=== PATIENT | male | born 1970 | race Caucasian/White ===

== ENCOUNTER 2017-06-02 14:28 | Inpatient (IN) | payer SELFPAY ==
[2017-06-02] MEDS ORDERED: LABETALOL HCL 5 MG/ML 20 ML MDV ONE (14:39)
[2017-06-02] MEDS: LABETALOL HCL 5 MG/ML 20 ML MDV IVP PRN ×3 (14:41→20:23)
[2017-06-02 14:42] LABS: PLATELET COUNT 226 10^3/uL (150-400)
--- NOTE | 2017-06-02 14:43 | CPEKG ---
Heart Rate: 71 RR Interval: 845 P-R Interval: 176 QRSD Interval: 110 QT Interval: 444 QTC Interval: 483 P Bennett: 45 QRS Bennett: 44 T Wave Bennett: 35 EKG Severity - ABNORMAL ECG - EKG Impression: SINUS RHYTHM EKG Impression: NONSPECIFIC INTRAVENTRICULAR CONDUCTION DELAY EKG Impression: MINIMAL ST DEPRESSION, LATERAL LEADS Electronically Signed By: Faith Carpio 02-Jun-2017 21:50:13
[2017-06-02] MEDS ORDERED: niCARdipine/NACL 200 ML IV ONE (14:50)
--- NOTE | 2017-06-02 14:51 | EDPHY ---
H & P Stated Complaint: hypertensive Time Seen by Provider: 06/02/17 14:35 HPI/ROS: CHIEF COMPLAINT: Headache HISTORY OF PRESENT ILLNESS: This is a 46-year-old Singaporean speaking male who arrives by ambulance emergently. All information was obtained with the assistance of a [place]an foreign language interpreter. 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 He attributed this to high blood pressure. He has a history of hypertension for which he takes losartan. He is compliant with this medication. No head trauma. At the time of his arrival he complains of severe global and nuchal headache. The paramedics were under the impression that he was experiencing chest pain but he tells me that this is not the case. He has no chest pain. He does not feel short of breath. He has not recently been ill. REVIEW OF SYSTEMS: A ten point review of systems was performed and is negative with the exception of the items mentioned in the HPI. 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 He is with children. His is in [place]. He does not use tobacco or alcohol products products and denies the use of illicit drugs. General Appearance: Alert. Vital signs reviewed. Initial blood pressure 251/ 140. Head: Normocephalic atraumatic. Eyes: Pupils equal and round, no conjunctival injection, no discharge. Anicteric. ENT, Mouth: Mucous membranes are moist, no oropharyngeal erythema or edema. Neck: No lymphadenopathy, supple. Trachea midline. Nontender to palpation over the cervical spine. Respiratory: Lungs are clear to auscultation; no wheezes, rales, or rhonchi. Cardiovascular: Regular rate and rhythm; no murmur, rub, or gallop. Gastrointestinal: Abdomen is soft and nontender, no masses or organomegaly, bowel sounds normal. Skin: Warm and dry, no rashes on exposed skin, normal color. Back: Nontender to palpation over the thoracolumbar spine. Extremities: No lower extremity edema, no calf tenderness or swelling. Neurological: Alert and oriented. Moving all four extremities easily and equally. Cranial nerves II through XII are examined and are intact (visual acuity not tested). Strength is 5 over 5 bilaterally with testing of all major motor groups. Sensation is intact to light touch over all 4 extremities. Finger-to- nose is performed accurately. Psychiatric: Normal affect. - Personal History Current Tetanus Diphtheria and Acellular Pertussis (TDAP): Unsure - Medical/Surgical History Hx Asthma: No Hx Chronic Respiratory Disease: No Hx Diabetes: No Hx Cardiac Disease: No Hx Renal Disease: No Hx Cirrhosis: No Hx Alcoholism: No Hx HIV/AIDS: No Hx Splenectomy or Spleen Trauma: No Other PMH: HTN - Social History Smoking Status: Never smoked Constitutional: Initial Vital Signs Temperature (C) 36.4 C 06/02/17 14:36 Heart Rate 71 06/02/17 14:36 Respiratory Rate 20 06/02/17 14:36 Blood Pressure 251/140 H 06/02/17 14:36 O2 Sat (%) 99 06/02/17 14:36 O2 Delivery Mode Room Air Allergies/Adverse Reactions: No Known Drug Allergies Allergy (Verified 06/02/17 14:45) Home Medications: Medication Instructions Recorded Losartan Potassium [Cozaar 50 mg 50 mg PO DAILY 06/02/17 (*)] Medical Decision Making - Diagnostics EKG Interpretation: 12 lead EKG is interpreted in Trace master View by emergency department physician. Imaging Results: Imaging Impressions Head CT 06/02/17 14:33 Impression: 1. Acute subarachnoid hemorrhages involving the basilar cisterns and bilateral parasylvian fissures, which may be secondary to ruptured basilar tip aneurysm, posttraumatic hemorrhage, or hypertensive hemorrhage. 2. Old lacunar infarct right lentiform nucleus. 3. No midline shift or herniation. 4. Consider CTA brain to evaluate for aneurysm. Findings and recommendations discussed with Emergency Department physician, Sammie Aquino M.D., at 1440 hours, on June 02, 2017. Final report concurs with initial preliminary interpretation. A test result has been communicated to a licensed care provider and documented in the [facility] Critical Result system on 06/02/2017 14:48, Message ID [id number]. Chest X-Ray 06/02/17 14:47 Impression: 1. No acute pulmonary disease. 2. Consider chest two views when the patient's medical condition permits. 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 Findings and recommendations discussed with Emergency Department physician, SAMMIE AQUINO at 16:02 hour, 06/02/2017. Final report concurs with initial preliminary interpretation. ED Course/Re-evaluation: 46-year-old male who arrives with blood pressure of 251/140 in the setting of the worst headache of his life. Emergent CT scan of the brain without contrast was performed and revealed bilateral subarachnoid hemorrhage. He was noted to have a creatinine of 2.6, making CT angiogram risky. Because of this MR angiogram was performed and revealed a basilar tip aneurysm, presumably the source of his subarachnoid hemorrhage. The patient initially received labetalol 10 mg IV followed by the initiation of a Cardene IV drip. The goal was to attained systolic blood pressures around 130. This was difficult to achieve. The Cardene drip was titrated upwards with gradual improvement in his blood pressures. At the time that he left the department his blood pressure was 165/93. He received IV morphine for treatment of his headache. Patient was serially examined while in the department and remained neurologically intact and fully alert throughout his stay. I reviewed the patient's EKG, chest x-ray, laboratory studies, CT scan and MRA. I have discussed the radiographic studies with the radiologist on duty. I spoke with Dr. Estrella, neurosurgery, over the telephone and Dr. Estrella subsequently saw the patient in the emergency department. He will be admitting admitting the patient to the ICU. I have notified the hospitalist on duty and asked for medical consultation. Differential Diagnosis: Headache including but not limited to subarachnoid hemorrhage, migraine headache , tension headache and infectious causes such as meningitis, pharyngitis and sinusitis. Critical Care Time: I spent a total of 6 minutes of critical care time in obtaining history, performing a physical exam, bedside monitoring of interventions, collecting and interpreting tests and discussion with consultants but not including time spent performing procedures. - Data Points Laboratory Results: Laboratory Results 06/02/17 14:39 06/02/17 14:39 06/02/17 06/02/17 06/02/17 15:22 14:39 14:39 WBC 8.43 10^3/uL 10^3/uL (3.80-9.50) RBC 5.34 10^6/uL 10^6/uL (4.40-6.38) Hgb 15.5 g/dL g/dL (13.7-17.5) POC Hgb Hct 43.7 % % (40.0-51.0) POC Hct MCV 81.8 fL fL (81.5-99.8) MCH 29.0 pg pg (27.9-34.1) MCHC 35.5 g/dL g/dL (32.4-36.7) RDW 12.9 % % (11.5-15.2) Plt Count 226 10^3/uL 10^3/uL (150-400) MPV 10.2 fL fL (8.7-11.7) Neut % (Auto) 69.8 % % (39.3-74.2) Lymph % (Auto) 19.5 % % (15.0-45.0) Liberty % (Auto) 8.5 % % (4.5-13.0) Eos % (Auto) 1.2 % % (0.6-7.6) Baso % (Auto) 0.5 % % (0.3-1.7) Nucleat RBC Rel Count 0.0 % % (0.0-0.2) Absolute Neuts (auto) 5.89 10^3/uL 10^3/uL (1.70-6.50) Absolute Lymphs (auto) 1.64 10^3/uL 10^3/uL (1.00-3.00) Absolute Monos (auto) 0.72 10^3/uL 10^3/uL (0.30-0.80) Absolute Eos (auto) 0.10 10^3/uL 10^3/uL (0.03-0.40) Absolute Basos (auto) 0.04 10^3/uL 10^3/uL (0.02-0.10) Absolute Nucleated RBC 0.00 10^3/uL 10^3/uL (0-0.01) Immature Gran % 0.5 % % (0.0-1.1) Immature Gran # 0.04 10^3/uL 10^3/uL (0.00-0.10) PT 12.7 SEC SEC (12.0-15.0) INR 0.93 (0.83-1.16) APTT 25.2 SEC SEC (23.0-38.0) POC Sodium Sodium 143 mEq/L mEq/L (135-145) POC Potassium Potassium 4.0 mEq/L mEq/L (3.5-5.2) POC Chloride Chloride 104 mEq/L mEq/L (97-110) Carbon Dioxide 22 mEq/l mEq/l (22-31) Anion Gap 17 mEq/L H mEq/L (8-16) POC BUN BUN 28 mg/dL H mg/dL (7-23) Creatinine 2.6 mg/dL H mg/dL (0.7-1.3) POC Creatinine Estimated GFR 27 Glucose 125 mg/dL H mg/dL (70-100) POC Glucose Calcium 10.0 mg/dL mg/dL (8.5-10.4) 06/02/17 14:36 WBC RBC Hgb POC Hgb 15.3 gm/dL gm/dL (13.7-17.5) Hct POC Hct 45 % % (40-51) MCV MCH MCHC RDW Plt Count MPV Neut % (Auto) Lymph % (Auto) Liberty % (Auto) Eos % (Auto) Baso % (Auto) Nucleat RBC Rel Count Absolute Neuts (auto) Absolute Lymphs (auto) Absolute Monos (auto) Absolute Eos (auto) Absolute Basos (auto) Absolute Nucleated RBC Immature Gran % Immature Gran # PT INR APTT POC Sodium 141 mEq/L mEq/L (135-145) Sodium POC Potassium 3.7 mEq/L mEq/L (3.3-5.0) Potassium POC Chloride 102 mEq/L mEq/L (97-110) Chloride Carbon Dioxide Anion Gap POC BUN 27 mg/dL H mg/dL (7-23) BUN Creatinine POC Creatinine 2.8 mg/dL H mg/dL (0.7-1.3) Estimated GFR Glucose POC Glucose 137 mg/dL H mg/dL (70-100) Calcium Medications Given: Hydrocodone Bitart/Acetaminophen (Rienzi 5/325) 1 tab PO Q4HRS PRN PRN Reason: Pain, Moderate Able to Take PO Stop: 06/12/17 16:52 Last Admin: 06/02/17 19:22 Dose: 1 tab Nicardipine HCl 50 mg/ (Dextrose) 250 mls @ 0 mls/hr IV CONT BRIDGETT; Per Protocol PRN Reason: Protocol Stop: 11/29/17 20:59 Last Admin: 06/02/17 21:12 Dose: 250 mls Labetalol HCl (Trandate Injection) 10 mg IVP .EVERY 10-20 MIN PRN PRN Reason: Hypertension during/after t-PA Stop: 11/29/17 14:38 Last Admin: 06/02/17 20:23 Dose: 10 mg Morphine Sulfate (Morphine) 1 - 2 mg IVP Q4HRS PRN PRN Reason: Pain, Severe Unable to Take PO Stop: 06/12/17 16:53 Last Admin: 06/02/17 21:11 Dose: 2 mg Nimodipine (Nimotop) 60 mg PO Q4HRS BRIDGETT Stop: 11/29/17 17:59 Last Admin: 06/02/17 18:03 Dose: 60 mg Ondansetron HCl (Zofran) 4 mg IVP Q4HRS PRN PRN Reason: Nausea/Vomiting, Can't Take PO Stop: 11/29/17 16:51 Last Admin: 06/02/17 17:23 Dose: 4 mg Discontinued Medications Nicardipine/Sodium Chloride (Cardene 0.1 Mg/Ml (Premix)) 200 mls @ 0 mls/hr IV EDNOW ONE; Titrate PRN Reason: Protocol Stop: 06/02/17 14:51 Last Admin: 06/02/17 14:57 Dose: 200 mls Nicardipine/Sodium Chloride (Cardene 0.1 Mg/Ml (Premix)) 200 mls @ 0 mls/hr IV CONT BRIDGETT; Titrate PRN Reason: Protocol Stop: 11/29/17 16:59 Last Admin: 06/02/17 20:22 Dose: 200 mls Morphine Sulfate (Morphine) 4 mg IVP EDNOW ONE Stop: 06/02/17 15:08 Last Admin: 06/02/17 15:20 Dose: 4 mg Point of Care Test Results: 06/02/17 14:36 POC Sodium 141 POC Potassium 3.7 POC Chloride 102 POC BUN 27 H POC Creatinine 2.8 H POC Glucose 137 H Departure - Departure Disposition: [facility] Acute Clinical Impression: Subarachnoid hemorrhage, Hypertensive emergency Condition: Serious
[2017-06-02 15:41] LABS: INR 0.93 (0.83-1.16); PROTIME(PATIENT) 12.7 SEC (12.0-15.0)
[2017-06-02] MEDS ORDERED: NS 1,000 ML IV SCH (16:45)
[2017-06-02] MEDS: ONDANSETRON 4 MG/2 ML VIAL IVP PRN (17:23)
[2017-06-02] MEDS: niCARdipine/NACL 200 ML IV SCH ×3 (17:50→20:22)
--- NOTE | 2017-06-02 17:57 | GHP ---
[f rep st] HISTORY AND PHYSICAL DATE OF ADMISSION: 06/02/2017 CONSULTING SERVICE: Emergency Medicine, Dr. Carpio. CHIEF COMPLAINT: Severe acute onset headache. 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 [place] had acute onset explosive headache which he has never had in his life. He was brought to the emergency department in reasonably good , and a noncontrasted head CT revealed significant basilar subarachnoid hemorrhage, consistent with an aneury smal rupture. Due to an elevated creatinine, he received an MRA of the brain which verified a sizabl e basilar tip artery aneurysm. The patient is primarily [place] speaking but, other than complaints of a headache, he has no other neurological symptoms. Family and friends are present at the bedside, as well as is a collaborating supervising physician. I saw him in the emergency room and agreed to admit him, given the neur osurgical pathology at hand. His blood pressure was very high in the 220 systolic over 100s diastoli c, and stat orders for a nicardipine drip for blood pressure less than 130 was requested. PAST MEDICAL AND SURGICAL HISTORY: Per HPI. 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 CODE STATUS: Full. ALLERGIES: No known drug allergies. FAMILY HISTORY: Negative, to his knowledge, for brain hemorrhages or sudden . SOCIAL HISTORY: Denies smoking or significant alcohol or drug abuse. He is with children. REVIEW OF SYSTEMS: Ten points reviewed and negative other than stated in HPI. VITAL SIGNS: Afebrile at 36.4, heart rate 71, blood pressure 251/140, saturating 99%, with a respira tory rate of 20, on room air. NEUROLOGIC EXAM: The patient is awake, alert, oriented x3 and appears stated age. He is fluent in [employer] but primarily speaks Citizen [place]. There is an official court interpreter present, and I am also fluent in [place] and obtained my own history. He is in moderate discomfort due to his headache but is 5/5 in all ext remities with no pronator drift. Normal reflexes and normal sensory exam. He has no cerebral findin gs. Gait is deferred. REVIEW OF IMAGING: I have reviewed the patient's noncontrasted head CT and agree that he has a patte rn of subarachnoid hemorrhage consistent with aneurysmal rupture. The blood seems equally distribute d throughout the basilar cisterns bilaterally, indicating a rupture of a midline aneurysm. The MRA c onfirms the presence of an at least 6 mm basilar tip aneurysm. I do not note any other aneurysms on any other of the arteries of the [place]. IMPRESSION AND PLAN: A 46-year-old male, with obesity and high blood pressure, who presents with sev ere acute onset headache, hypertensive emergency, and rupture of a basilar tip aneurysm with subarach noid hemorrhage. He is in reasonably good neurologic condition, just complains of a headache, but a nonfocal neurologic exam. Thus, his Hopper-Oleary grade is a 4 for some rupture into the ventricular sys tem, and his Mata grade is a 1 for headache only. We are admitting the patient to the ICU for neur o checks and tight blood pressure control, less than 130 on a nicardipine drip. He will also be hydr ated. I will discuss case with my partner, Dr. Blake Mcfarland, who is a cerebrovascular specialist, to see if he would like to perform aneurysm and endovascular treatment of this patient's ruptured aneur ysm. I met with the patient in the emergency room, and he was in good condition prior to my departur e from the hospital. /[id number]/MODL
[2017-06-02] MEDS: niMODipine 30 MG CAP PO SCH ×2 (18:03→22:11)
--- NOTE | 2017-06-02 18:53 | PDMN ---
Medical Necessity Medical necessity: C/M review: Patient meets INPT crioteria under MCG M-79 Subarachnoid Hemorrhage, Nonsurgical Treatment: Acute onset severe headache, hypertensive emergency BP 251/140, 6 mm basilar tip aneurysm on brain MRA with subarachnoid hemorrhage involving basilar cisterns and bilateral parasylvan fissures on CT, Hopper-Oleary grade 4 for some rupture into the ventricular system, Rodriguez grade 1 for headache only requiring planned Cerebrovascular Specialist ( Neurosurgery) consult, possible future aneurysm and endovascular treatment of ruptured aneurysm during this admission, IV Labatelol x 1 thus far, ongoing Nicardipine infusion, IV Morphine, IV NS 125 ml/hr. infusion, IV Zofran, IV Labetolol as needed to control BP, frequent neuro checks, tight BP control to < 130 systolic, comorbid obesity BMI 27.4 kg/m2, hypertension. MD anticipates > 2 MN LOS for ongoing med nec for eval and TX of above.
[2017-06-02] MEDS: HYDROCODONE/APAP 5/325 TAB PO PRN (19:22)
--- NOTE | 2017-06-02 20:10 | PDHOSCONS ---
History and Physical - Chief Complaint headache - History of Present Illness 46 yo M with PMH of HTN presenting with severe, sudden onset headache and neck ache. He notes this was a different headache from his usual headache but denies any other changes in his health including any numbness or weakness anywhere, any changes in his vision or speech. He was found to be quite hypertensive in the ER, with BP of 240/130 and noted to have a SAH that was related to basilar aneurysm rupture. At the time of my evaluation the patient notes that his head no longer hurts, but he continues to have some neck pain. He otherwise feels well and is hungry. History Information - Allergies/Home Medication List Allergies/Adverse Reactions: No Known Drug Allergies Allergy (Verified 06/02/17 14:45) Home Medications: Losartan Potassium [Cozaar 50 mg (*)] 50 mg PO DAILY 06/02/17 [Last Taken Unknown] I have personally reviewed and updated: family history, medical history, social history, surgical history - Past Medical History hypertension - Surgical History Reports: no pertinent surgical hx - Family History Positive for: non-pertinent - Social History Smoking Status: Never smoked Alcohol Use: Occasionally Drug Use: None Additional social history: Review of Systems Review of Systems: ROS: 10pt was reviewed & negative except for what was stated in HPI & below Physical Exam Physical Exam: Temp Pulse Resp BP Pulse Ox 37.1 C 103 H 21 H 144/83 H 97 06/02/17 19:00 06/02/17 20:00 06/02/17 19:00 06/02/17 20:00 06/02/17 19:00 O2 (L/minute) 2 Constitutional: no apparent distress, appears nourished Eyes: PERRL, anicteric sclera Ears, Nose, Mouth, Throat: moist mucous membranes, hearing normal, ears appear normal Cardiovascular: regular rate and rhythym, no murmur, rub, or gallop, No edema Respiratory: no respiratory distress, no rales or rhonchi, clear to auscultation Gastrointestinal: normoactive bowel sounds, soft, non-tender abdomen, no palpable masses Genitourinary: no bladder fullness Skin: warm, normal color Musculoskeletal: full muscle strength Neurologic: AAOx3, sensation intact bilaterally, No weakness, No numbness Psychiatric: interacting appropriately, not anxious, not encephalopathic Lab Data & Imaging Review 06/02/17 14:39 06/02/17 14:39 WBC 8.43 10^3/uL (3.80-9.50) 06/02/17 14:39 RBC 5.34 10^6/uL (4.40-6.38) 06/02/17 14:39 Hgb 15.5 g/dL (13.7-17.5) 06/02/17 14:39 POC Hgb 15.3 gm/dL (13.7-17.5) 06/02/17 14:36 Hct 43.7 % (40.0-51.0) 06/02/17 14:39 POC Hct 45 % (40-51) 06/02/17 14:36 MCV 81.8 fL (81.5-99.8) 06/02/17 14:39 MCH 29.0 pg (27.9-34.1) 06/02/17 14:39 MCHC 35.5 g/dL (32.4-36.7) 06/02/17 14:39 RDW 12.9 % (11.5-15.2) 06/02/17 14:39 Plt Count 226 10^3/uL (150-400) 06/02/17 14:39 MPV 10.2 fL (8.7-11.7) 06/02/17 14:39 Neut % (Auto) 69.8 % (39.3-74.2) 06/02/17 14:39 Lymph % (Auto) 19.5 % (15.0-45.0) 06/02/17 14:39 Ramsey % (Auto) 8.5 % (4.5-13.0) 06/02/17 14:39 Eos % (Auto) 1.2 % (0.6-7.6) 06/02/17 14:39 Baso % (Auto) 0.5 % (0.3-1.7) 06/02/17 14:39 Nucleat RBC Rel Count 0.0 % (0.0-0.2) 06/02/17 14:39 Absolute Neuts (auto) 5.89 10^3/uL (1.70-6.50) 06/02/17 14:39 Absolute Lymphs (auto) 1.64 10^3/uL (1.00-3.00) 06/02/17 14:39 Absolute Monos (auto) 0.72 10^3/uL (0.30-0.80) 06/02/17 14:39 Absolute Eos (auto) 0.10 10^3/uL (0.03-0.40) 06/02/17 14:39 Absolute Basos (auto) 0.04 10^3/uL (0.02-0.10) 06/02/17 14:39 Absolute Nucleated RBC 0.00 10^3/uL (0-0.01) 06/02/17 14:39 Immature Gran % 0.5 % (0.0-1.1) 06/02/17 14:39 Immature Gran # 0.04 10^3/uL (0.00-0.10) 06/02/17 14:39 PT 12.7 SEC (12.0-15.0) 06/02/17 15:22 INR 0.93 (0.83-1.16) 06/02/17 15:22 APTT 25.2 SEC (23.0-38.0) 06/02/17 15:22 POC Sodium 141 mEq/L (135-145) 06/02/17 14:36 Sodium 143 mEq/L (135-145) 06/02/17 14:39 POC Potassium 3.7 mEq/L (3.3-5.0) 06/02/17 14:36 Potassium 4.0 mEq/L (3.5-5.2) 06/02/17 14:39 POC Chloride 102 mEq/L (97-110) 06/02/17 14:36 Chloride 104 mEq/L (97-110) 06/02/17 14:39 Carbon Dioxide 22 mEq/l (22-31) 06/02/17 14:39 Anion Gap 17 mEq/L (8-16) H 06/02/17 14:39 POC BUN 27 mg/dL (7-23) H 06/02/17 14:36 BUN 28 mg/dL (7-23) H 06/02/17 14:39 Creatinine 2.6 mg/dL (0.7-1.3) H 06/02/17 14:39 POC Creatinine 2.8 mg/dL (0.7-1.3) H 04/07/18 14:36 Estimated GFR 27 06/02/17 14:39 Glucose 125 mg/dL (70-100) H 06/02/17 14:39 POC Glucose 137 mg/dL (70-100) H 06/02/17 14:36 Calcium 10.0 mg/dL (8.5-10.4) 06/02/17 14:39 Troponin I < 0.012 ng/mL (0.000-0.034) 06/02/17 15:27 Visualized and Interpreted Chest x-ray results: Yes Chest X-Ray results: no infiltrate, normal Visualized and Interpreted imaging results: Yes Interpretation: head CT with active SAH basilar cisterns Visualized and Interpreted EKG results: Yes EKG Interpretation: Positive for: ST depression (minimal, lateral ) Assessment & Plan Assessment: 46 yo M with uncontrolled HTN presenting with SAH due to aneurysmal bleed # SAH: 2/2 aneurysmal bleed, NSG evaluating and considering endovascular repair. At this time, monitoring in ICU with frequent neuro checks, goal BP < 130 systolic and currently on cardene gtt. Neurologically intact at the time of presentation # hypertensive emergency: in setting of SAH bleed as above, currently on cardene gtt and has required prn labetalol as well, will monitor in ICU overnight # guillermo: baseline creatinine unknown but presenting with creatinine of 2.6, will check urine lytes, monitor I/Os, bladder scan. If not improving consider renal consult in am. Will hold losartan and avoid nephrotoxins. # abnormal ecg: minimal ST depressions, will trend trops # IP status, high risk requiring ICU care, > 40 min critical care time spent in care of this patient Patient new to my care. Old records reviewed and summarized as above. Care plan reviewed with ER physician.
[2017-06-02] MEDS ORDERED: NICARDIPINE IV SCH (21:00)
[2017-06-02] MEDS ORDERED: D5W IV SCH (21:00)
[2017-06-02] MEDS: NICARDIPINE IV SCH (21:12)
[2017-06-02] MEDS: D5W IV SCH (21:12)
[2017-06-03] MEDS: NS 1,000 ML IV SCH ×3 (00:41→08:52)
[2017-06-03] MEDS: LABETALOL HCL 5 MG/ML 20 ML MDV IVP PRN (00:49)
[2017-06-03] MEDS: NICARDIPINE IV SCH ×5 (01:02→21:41)
[2017-06-03] MEDS: D5W IV SCH ×5 (01:02→21:41)
[2017-06-03] MEDS: niMODipine 30 MG CAP PO SCH ×6 (02:23→23:27)
[2017-06-03] MEDS: ONDANSETRON 4 MG/2 ML VIAL IVP PRN ×2 (07:18→19:33)
--- NOTE | 2017-06-03 08:33 | NEUSURGPN ---
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 basilar tip aneurysm and SAH Plan: -Plan for Dr Mcfarland to perform cerebral angiogram with coil embolization of aneurysm today at noon, risks and benefits discussed with time checker and consents signed, patient wishes to proceed -Patient is NPO -Neuro intact aside from blurred vision -Patient reportedly had some chest pain upon admission, troponin has mild elevation to 0.038-will get STAT EKG for eval -Creatine and BUN elevated 3.0/32, urine output overnight around 300ml despite getting 125ml/hr IVF -Appreciate Medicine work up for procedure today, will delay procedure to tomorrow if necessary for work up. [place] to treat today to reduce patient risk of re-rupture of aneurysm -Will start bicarb gtt one hour prior to procedure and continue to run for 3 hours post procedure -Patient discussed with Dr Mcfarland and Dr Estrella Please call neurosurgery with any questions/concerns Subjective: Patient headache improved Objective: AxO x3 PERRLA EOMI CN 2-12 grossly intact aside from patient reporting blurred vision OU 5/5 BUE,BLE Neuro Check Frequency: per routine Urinary Catheter in Place: No - Physician Discussed Patient with Dr.: Mcfarland Neurosurgery Physical Exam - Vitals, I&O, Labs I and O 06/02/17 06/03/17 06/04/17 05:59 05:59 05:59 Intake Total 3099 Output Total 750 Balance 2349 Weight 79.4 kg Intake: Oral (ml) 850 IV Infused (ml) 2249 Ns 1,000 ml @ 125 mls/hr 1545 IV CONT BRIDGETT Rx#: [id number] niCARdipine 50 mg In D5w 557 250 ml @ Per Protocol IV CONT BRIDGETT Rx#:[id number] niCARdipine/NACL 200 ml @ 147 Titrate IV CONT BRIDGETT Rx#: [id number] Output: Urine (ml) 750 Urinal 750 Other: Number of Stools Urinal 0 Bladder Scan Volume (ml) Urinal 121 0 Vital Signs Temp Pulse Resp BP Pulse Ox 36.9 C 96 20 132/87 H 96 06/03/17 04:00 06/03/17 07:00 06/03/17 07:00 06/03/17 07:00 06/03/17 07:00 Laboratory Results 06/03/17 05:30 ICD10 Worksheet Patient Problems: Problems Problem Status Onset Hypertensive emergency Acute Subarachnoid hemorrhage Acute
--- NOTE | 2017-06-03 08:38 | CPEKG ---
Heart Rate: 87 RR Interval: 690 P-R Interval: 168 QRSD Interval: 116 QT Interval: 376 QTC Interval: 453 P Harwood: 21 QRS Harwood: 38 T Wave Harwood: 45 EKG Severity - ABNORMAL ECG - EKG Impression: SINUS RHYTHM EKG Impression: INCOMPLETE RIGHT BUNDLE BRANCH BLOCK Electronically Signed By: Bro Sr 03-Jun-2017 10:02:17
[2017-06-03] MEDS ORDERED: SODIUM BICARBONATE 150 MEQ in D5W 1,000 ML IV SCH (08:45)
[2017-06-03] MEDS ORDERED: ALTEPLASE 2 MG VIAL IVP PRN (08:48)
[2017-06-03] MEDS ORDERED: ceFAZolin 2 GM/SWFI 2 GM/20 ML SYR IVP ONE (08:49)
--- NOTE | 2017-06-03 08:54 | HOSPPROG ---
Hospitalist Progress Note Assessment/Plan: Interview/exam done with [place]ican-extra hand #Elevated troponin: in setting of likely CKD (don't have old). No chest pain/ SOB. EKG with LVH and minimal ST depressions. Low suspicion for ACS. 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 Renal U/S tomorrow #Hypertensive crisis: controlled with Nicardipine, labetalol #Social: and kids live in [place] #Diet: NPO for surgery #DVT: SCDs #Disp: cont ICU admission for SAH, coiling, BP management # Subjective: denies CP or SOB Objective: Vital Signs Temp Pulse Resp BP Pulse Ox 36.9 C 96 20 132/87 H 96 06/03/17 04:00 06/03/17 07:00 06/03/17 07:00 06/03/17 07:00 06/03/17 07:00 Laboratory Results 06/03/17 05:30 06/02/17 06/03/17 06/04/17 05:59 05:59 05:59 Intake Total 3099 Output Total 750 Balance 2349 PT 12.7 SEC (12.0-15.0) 06/02/17 15:22 INR 0.93 (0.83-1.16) 06/02/17 15:22 - Time Spent With Patient Time Spent with Patient: greater than 35 minutes Time Spent with Patient: Greater than 35 minutes spent on this patients care, greater than 50% of time spent counseling, educating, and coordinating care regarding the above mentioned plan. - Physical Exam Constitutional: obese Eyes: PERRL Ears, Nose, Mouth, Throat: moist mucous membranes, hearing normal Cardiovascular: regular rate and rhythym, systolic murmur (2/6 RUSB) Respiratory: no respiratory distress Gastrointestinal: normoactive bowel sounds Skin: warm Neurologic: CN II-XII Intact, other (oriented to place, not date) Psychiatric: encephalopathic ICD10 Worksheet Patient Problems: Problems Problem Status Onset Hypertensive emergency Acute Subarachnoid hemorrhage Acute
[2017-06-03] MEDS ORDERED: LOSARTAN POTASSIUM 50 MG TAB PO SCH (09:00)
[2017-06-03] MEDS ORDERED: IOPAMIDOL (ISOVUE-300) 100 ML BTL ONE ×2 (10:54→15:49)
--- NOTE | 2017-06-03 11:45 | ECHO ---
[email or web address] [address] [address] Main: [phone] Fax: Transthoracic Echocardiogram Name: RAKESH NUÑEZ MR#: [id number] Study Date: 06/03/2017 Study Time: 10:23 AM Date of : 1970 Age: 46 year(s) Height: 170.2 cm (67 in.) Weight: 79.38 kg (175 lb.) BSA: 1.91 m2 Gender: Male Examination: Complete Echo with Agitated Saline Indication: HTN, Murmur Image Quality: Adequate Contrast: I.V. dose of agitated saline Requested by: Joyce Nichols BP: 136 mmHg/72 mmHg Heart Rate: Rhythm: Normal sinus rhythm Indication: HTN, Murmur Procedure Staff Asphalt Spreader: Iwona Connors [facility] Reading Physician: Khoi Johnson MD Requesting Provider: Conclusions: Mild to moderate LVH. EF is 63 %. The left atrium is severely dilated. Large atrial septal aneurysm with significant bowing from left to right. Agitated saline did not show shunting across the IAS from right to left this does not completely exclude a small PFO. There is mild thickening of the mitral valve leaflets. Mild mitral valve regurgitation is present. Right ventricular systolic pressure measures 43mmHg. The pulmonary artery pressure is mildly increased. Measurements: Chambers Valvular Assessment AV/MV Valvular Assessment TV/PV Normal Normal Normal Name Value Range Name Value Range Name Value Range Ao Andra (MM): 3.6 cm (2.2 cm-3.7 AV Vmax: 2.06 m/s (1 m/s-1.7 TR Vmax: 3.07 mm/s ( - ) cm) m/s) TR PGmax: 38 mmHg ( - ) IVSd (2D): 1.4 cm (0.6 cm-1.1 AV maxP mmHg ( - ) syst. PAP: 43 mmHg ( - ) cm) LVOT Vmax: 1.31 m/s (0.7 m/s-1.1 PV Vmax: 1.22 m/s (0.6 m/s-0.9 LVDd (2D): 5.9 cm (4.2 cm-5.9 m/s) m/s) cm) KATIE (Vmax): 2.2 cm2 ( - ) PV PGmax: 6 mmHg ( - ) LVDs (2D): 3.6 cm (2.1 cm-4 MV E Vmax: 0.96 m/s ( - ) cm) MV A Vmax: 0.74 m/s ( - ) LVPWd (2D): 1.3 cm (0.6 cm-1 MV E/A: 1.30 ( - ) cm) LVOTd 2.1 cm 2.1 cm mm LVEF (BP): 63 % (>=55 %) RVDd(2D): 3.3 cm (1.9 cm-3.8 cmmm) Continued Measurements: Patient: RAKESH NUÑEZ Study Date: 06/03/2017 Page 1 of 2 10:23 AM Chambers Valvular Assessment AV/MV Valvular Assessment TV/PV Name Value Name Value Name Value LADs: 5.0 cm MV DecTime: 137 m/s CVP (est.): 5 mmHg LADs Lon.7 cm MV E' Septal: 0.07 m/s LA Area: 30.9 cm2 MV E/E' Septal: 13.10 LA Volume: 147 ml MV E/E' Lateral: 10.30 LA Volume Index: 77.0 ml/m2 RA Area: 12.0 cm2 Additional Vessels Name Value Ao Ascendin.3 cm Findings: Left Ventricle: Normal size left ventricle. Mild to moderate LVH. Normal global systolic LV function. EF is 63 %. No regional wall motion abnormality. Normal diastolic LV function. Right Ventricle: Normal size right ventricle. Normal RV function. Left Atrium: The left atrium is severely dilated. Large atrial septal aneurysm with significant bowing from left to right. Agitated saline did not show shunting across the IAS from right to left this does not completely exclude a small PFO. Right Atrium: The right atrium is normal in size. Mitral Valve: The mitral valve is normal in appearance and function. There is mild thickening of the mitral valve leaflets. Mild mitral valve regurgitation is present. No mitral stenosis is present. Aortic Valve: The aortic valve is tri-leaflet and functions normally. There is no aortic valve regurgitation. No aortic valve stenosis is present. Tricuspid Valve: The tricuspid valve is normal in appearance and function. Trivial tricuspid valve regurgitation. Right ventricular systolic pressure measures 43mmHg. The pulmonary artery pressure is mildly increased. Pulmonic Valve: The pulmonic valve is normal in appearance and function. Trivial pulmonic valve regurgitation. Aorta: The aorta is normal. Normal size aortic root measuring 3.6 cm. Normal size ascending aorta measuring 3.3 cm. IVC: The IVC is normal sized. Pericardium: No pericardial effusion. (No Signature Object) Patient: RAKESH NUÑEZ Study Date: 06/03/2017 Page 2 of 2 10:23 AM [id number]
--- NOTE | 2017-06-03 12:34 | PDANEPAE ---
ANE History of Present Illness Aneurysm Coiling ANE Past Medical History - Cardiovascular History Hx Hypertension: Yes - Pulmonary History Hx Sleep Apnea: No Sleep Apnea Screening Result - Last Documented: Negative - Endocrine History Hx Diabetes: No - Chronic Pain History Chronic Pain: No ANE Review of Systems Review of Systems: - Exercise capacity Exercise capacity: limited by disability ANE Patient History - Allergies Allergies/Adverse Reactions: No Known Drug Allergies Allergy (Verified 06/02/17 14:45) - Home Medications Home Medications: Losartan Potassium [Cozaar 50 mg (*)] 50 mg PO DAILY 06/02/17 [Last Taken Unknown] - NPO status NPO Since - Liquids (Date): 06/03/17 NPO Since - Liquids (Time): 00:01 NPO Since - Solids (Date): 06/03/17 NPO Since - Solids (Time): 00:01 - Smoking Hx Smoking Status: Never smoked - Alcohol Use Alcohol Use: Occasionally ANE Labs/Vital Signs - Labs Result Diagrams: 06/02/17 14:39 06/03/17 05:30 - Vital Signs Blood Pressure: 122/60 Heart Rate: 87 Respiratory Rate: 16 O2 Sat (%): 92 Height: 170.18 cm Weight: 79.4 kg ANE Physical Exam - Airway Neck exam: FROM Mallampati Score: Class 2 - Pulmonary Pulmonary: clear to auscultation - Cardiovascular Cardiovascular: regular rate and rhythym ANE Anesthesia Plan Anesthesia Plan: general endotracheal anesthesia
[2017-06-03] MEDS ORDERED: PROPOFOL 200 MG/20 ML VIAL ONE (13:15)
[2017-06-03] MEDS ORDERED: fentaNYL 100 MCG/2 ML INJ ONE (13:20)
--- NOTE | 2017-06-03 13:20 | GCON ---
[f rep st] CONSULTATION CRITICAL CARE CONSULTATION DATE OF CONSULTATION: 06/03/2017 REASON FOR CONSULTATION: Intensive care unit evaluation and medical management of subarachnoid shameka mckay. HISTORY: The patient is a 46-year-old gentleman who is from [place]. 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 Yesterday while at work, he had the sudden onset of a severe headache. He drove himself to the emergency department. Blood pressure was significantly elevated at 240/130. CT scan showed a s ubarachnoid hemorrhage, and a basilar artery aneurysm was present and felt to have ruptured. The samuel johnson was admitted to the intensive care unit on a nicardipine drip. He was also given labetalol. Ni modipine was started. He was given hydrocodone and Tylenol for his headache. Overnight in the [facility] care unit, he did well. Blood pressure was well controlled on the above medications. He is tobias ng scheduled for a coil procedure. On admission, he was also found to have an elevated BUN and creatinine. This is likely chronic. He does have a history of hypertension and was taking losartan from [place]. He does not have a local ysician. He has had decreased urinary output, with bladder scan showing 500 mL of urine in his bladd er. A Tavares catheter has been placed with difficulty. PAST MEDICAL HISTORY: Remarkable for hypertension and intermittent headaches. He denies diabetes or previously known renal disease. There is no history of heart disease. DRUG ALLERGIES: No known drug allergies. SOCIAL HISTORY: The patient has a and 2 children in [place]. Some sisters live here. Alcohol a nd tobacco are denied. 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. FAMILY HISTORY: Noncontributory. REVIEW OF SYSTEMS: Ten-point review of systems is negative except as mentioned above. PHYSICAL EXAMINATION: GENERAL: A pleasant gentleman with persistent head and neck ache. He is some what restless. He is oriented and appropriately responsive. I spoke to him in Nepali. VITAL SIGNS : He is on room air with saturations 92%. Current blood pressure is 122/60. Heart rate is 85 with sinus rhythm on the monitor. He is afebrile. HEENT: Remarkable for pupils being equal. There is n o jugular venous distention. Mucous membranes are slightly dry. He is n.p.o. CHEST: Clear bilater ally. HEART: Regular in rate and rhythm. There is a soft systolic murmur, no gallop. P2 is not el evated. ABDOMEN: Soft, nontender. Bowel sounds are present. EXTREMITIES: Without edema, cords, o r tenderness. NEUROLOGIC: Examination is nonfocal. Mentation appears to be intact, but he is somew hat restless and responds slightly slowly, likely secondary to the effects of his subarachnoid hemorr juan. DATA REVIEWED: Radiologic studies are as outlined above. The MRA of the brain showed the basilar ar max aneurysm to be at least 6 mm. Cardiac echo shows a normal ejection fraction. The bubble study was negative. Right ventricular sys tolic pressures were estimated to be mildly increased at approximately 40. S. White blood cell count is 8400, hematocrit 43, platelets 226,000. PT and PTT were normal on admissio n. Basic metabolic panel is normal with exception of a BUN of 32 and a creatinine of 3.0, up slightl y compared to admission. Glucose 148. Troponin bumped slightly at 0.038. Calcium is 8.6. Urinalys is on admission was within normal limits. ASSESSMENT: 1. Subarachnoid hemorrhage, acute. 2. Basilar artery aneurysm, for surgical intervention today. 3. Systemic hypertension. Chronic and acute. The latter is likely secondary to the subarachnoid he morrhage. Blood pressure is being adequately controlled with nicardipine and labetalol. 4. Renal insufficiency. Likely chronic, possibly related to longer standing hypertension. Further renal workup will be required. Ultrasound can be done tomorrow with renal consultation if needed. 5. Deep venous thrombosis prophylaxis. SCDs alone. Anticoagulation contraindicated. 6. Gastrointestinal prophylaxis: Famotidine can be given initially, stopped once he is eating. RECOMMENDATIONS: Please see the comments above. The patient will be taken to the operating room tolatia henley by Neurosurgery for clipping/coiling of his aneurysm. I assume he will be returned to the intensi ve care unit off the ventilator. Antihypertensive therapy will be continued. Pain control will be c ontinued. Further renal workup can be done postoperatively. Laboratory will be followed. Intraveno us fluids will be continued. Further plans and recommendations will be made based on his status postoperatively and his progress o chano the next 12-24 hours. /[id number]/MODL
[2017-06-03] MEDS ORDERED: ONDANSETRON 4 MG/2 ML VIAL IVP PRN (14:11)
[2017-06-03] MEDS ORDERED: ALBUTEROL 3 ML DEYVIAL IH PRN (14:11)
[2017-06-03] MEDS ORDERED: NALOXONE HCL 0.4 MG/ML INJ IVP PRN (14:11)
[2017-06-03] MEDS ORDERED: fentaNYL 100 MCG/2 ML INJ IVP PRN (14:11)
[2017-06-03] MEDS ORDERED: LIDOCAINE 1% 300 MG/30 ML SDV ONE (15:49)
--- NOTE | 2017-06-03 16:14 | POSTANESTH ---
Post Anesthetic Evaluation Cardiovascular Status: Normal, Stable, Tx Hyper/Hypo-tension Respiratory Status: Normal, Stable Level of Consciousness/Mental Status: Mildly Sleepy, Arousable Pain Control: Adequate, Prn Tx Ordered Nausea/Vomiting Control: Adequate, Prn Tx Ordered Complications Possibly Related to Anesthesia: None Noted
--- NOTE | 2017-06-03 17:11 | ASMTCMCOM ---
CM Note CM Note Notes: 46yr old male admitted for HTN emergency, SAH, Ruptured aneruysm. He has a Hx of Obesity, HTN, Renal insuff. Patient works in [place] his and children live in [place]. Patient to have a coil procedure. CM to follow. Date Signed: 06/03/2017 05:10 PM Electronically Signed By:Nataliia Sewell LCSW
[2017-06-03] MEDS: PROMETHAZINE HCL 25 MG/ML INJ IVP PRN (23:27)
[2017-06-04] MEDS: D5W IV SCH ×4 (02:01→21:31)
[2017-06-04] MEDS: NICARDIPINE IV SCH ×4 (02:01→21:31)
[2017-06-04] MEDS: NS 1,000 ML IV SCH ×2 (03:09→22:31)
[2017-06-04] MEDS: niMODipine 30 MG CAP PO SCH ×6 (03:10→21:31)
[2017-06-04 04:54] LABS: PLATELET COUNT 177 10^3/uL (150-400)
[2017-06-04] MEDS: LABETALOL HCL 5 MG/ML 20 ML MDV IVP PRN ×2 (05:17→19:57)
[2017-06-04] MEDS ORDERED: IOPAMIDOL (ISOVUE-300) 100 ML BTL ONE (08:24)
--- NOTE | 2017-06-04 08:36 | PDINTPN ---
Detention Sergeant Progress Note Assessment/Plan: Assessment/plan: * Acute subarachnoid hemorrhage * Basilar artery aneurysm-status post coiling * Possible old lacunar stroke * Mental status-alert to person and month * Hypertension-reasonably well controlled. -continue Cardene and monitor closely. * Chronic renal insufficiency-currently stable -follow closely * Pulmonary hypertension * VT prophylaxis * Stress ulcer prophylaxis * Pain * Mild anemia-drop in H&H -will follow closely Subjective: Somnolent this morning. Somewhat restless throughout the evening per nurse. Objective: Vital Signs Temp Pulse Resp BP Pulse Ox 37.2 C 84 15 164/71 H 92 06/04/17 04:00 06/04/17 07:00 06/04/17 07:00 06/04/17 07:00 06/04/17 07:00 Laboratory Results 06/04/17 04:30 06/04/17 04:30 06/03/17 06/04/17 06/05/17 05:59 05:59 05:59 Intake Total 3099 4997 Output Total 750 1325 150 Balance 2349 3672 -150 PT 12.7 SEC (12.0-15.0) 06/02/17 15:22 INR 0.93 (0.83-1.16) 06/02/17 15:22 Physical Exam - Physical Exam General Appearance: no apparent distress, No alert EENT: PERRL/EOMI Neck: non-tender, full range of motion Respiratory: chest non-tender, lungs clear, normal breath sounds Cardiac/Chest: normal peripheral pulses, regular rate, rhythm Abdomen: normal bowel sounds, non-tender, soft Male Genitalia: deferred Rectal: deferred Skin: normal color, warm/dry Extremities: non-tender Neuro/Psych: No alert, No oriented x 3 ICD10 Worksheet Patient Problems: Problems Problem Status Onset Hypertensive emergency Acute Subarachnoid hemorrhage Acute
--- NOTE | 2017-06-04 08:54 | NEUSURGPN ---
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 Mcfarland Plan: -TCD scheduled for today -Continue Nimodipine -SBP 100-180 -Neuro intact aside from blurred vision -Vision blurry but present this morning -Creatine improved today to 2.8 -[employer]ORATORY TECHNICIAN eval, okay to advance diet per there recommendations -Discussed with Dr. Mcfarland -Please call neurosurgery with any questions/concerns Subjective: mild headache Objective: NAD Vision blurry but present. MAEx4 5/5 and equal in BUE and BLE. right groin soft supple Catheter Insertion Date: 06/03/17 - Physician Discussed Patient with : [facility] Physical Exam - Vitals, I&O, Labs I and O 06/03/17 06/04/17 06/05/17 05:59 05:59 05:59 Intake Total 3099 4997 Output Total 750 1325 250 Balance 2349 3672 -250 Weight 79.4 kg 79.4 kg Intake: Oral (ml) 850 0 IV Infused (ml) 2249 4997 Ns 1,000 ml @ 125 mls/hr 1545 2648 IV CONT BRIDGETT Rx#: [id number] Sodium Bicarbonate 150 1085 meq In D5w 1,000 ml @ Per Protocol IV CONT BRIDGETT Rx# :[id number] niCARdipine 50 mg In D5w 557 1264 250 ml @ Per Protocol IV CONT BRIDGETT Rx#:[id number] niCARdipine/NACL 200 ml @ 147 Titrate IV CONT BRIDGETT Rx#: [id number] Output: Urine (ml) 750 1325 250 Catheter 1325 100 Urinal 750 150 Other: Output Comment Catheter condom cath Number of Stools Catheter 0 Urinal 0 Bladder Scan Volume (ml) Urinal 121 0 Post Void Residual Scan Volume (ml) Catheter 140 Vital Signs Temp Pulse Resp BP Pulse Ox 37.3 C 91 20 169/71 H 92 06/04/17 08:00 06/04/17 08:00 06/04/17 08:00 06/04/17 08:00 06/04/17 08:00 Laboratory Results 06/04/17 04:30 06/04/17 04:30 ICD10 Worksheet Patient Problems: Problems Problem Status Onset Hypertensive emergency Acute Subarachnoid hemorrhage Acute
[2017-06-04] MEDS ORDERED: HYDROmorphONE/DILAUDID 1 MG/ML INJ IVP PRN (11:22)
[2017-06-04] MEDS: TAMSULOSIN HCL 0.4 MG CAP PO SCH (12:55)
[2017-06-04] MEDS: ONDANSETRON 4 MG/2 ML VIAL IVP PRN ×2 (13:07→19:57)
[2017-06-04] MEDS: HYDROCODONE/APAP 5/325 TAB PO PRN ×2 (15:17→19:58)
--- NOTE | 2017-06-04 16:46 | HOSPPROG ---
Hospitalist Progress Note Assessment/Plan: 46 yo M w/SAH 2/2 aneurysmal bleed #SAH: BP controlled with Nicardipine, BB, 2/2 aneurysmal bleed and s/p coiling #Acute encephalopathy: due to SAH #Basilar artery aneurysm: sp coil # elevated trop: likely 2/2 intracranial process, echo without suggestion of ischemia #Suspected CKD: with long-standing HTN. Renal U/S pending #Hypertensive crisis: controlled with Nicardipine, labetalol #Social: and kids live in [place] #Diet: NPO for surgery #DVT: SCDs #Disp: cont ICU admission for SAH Care plan reviewed with Dr. Ruby Subjective: no significant overnight events, patient somnolent, swanson resolved Objective: Vital Signs Temp Pulse Resp BP Pulse Ox 37.4 C 104 H 14 146/71 H 94 06/04/17 16:00 06/04/17 16:00 06/04/17 16:00 06/04/17 16:00 06/04/17 16:00 Laboratory Results 06/04/17 04:30 06/04/17 04:30 06/03/17 06/04/17 06/05/17 05:59 05:59 05:59 Intake Total 3099 4997 Output Total 750 1325 850 Balance 2349 3672 -850 PT 12.7 SEC (12.0-15.0) 06/02/17 15:22 INR 0.93 (0.83-1.16) 06/02/17 15:22 somnolent arousable anicteric op clear rrr no mrg cta b soft nt nd no cce warm dry wel perfused oriented ICD10 Worksheet Patient Problems: Problems Problem Status Onset Hypertensive emergency Acute Subarachnoid hemorrhage Acute
[2017-06-04] MEDS: PROMETHAZINE HCL 25 MG/ML INJ IVP PRN (21:45)
[2017-06-05] MEDS: HYDROmorphone HCL/NS 0.5 MG/ML SYR IVP PRN ×4 (00:10→22:26)
[2017-06-05] MEDS: ACETAMINOPHEN 325 MG TAB PO PRN ×3 (00:13→13:56)
[2017-06-05] MEDS: niMODipine 30 MG CAP PO SCH ×6 (01:09→22:10)
[2017-06-05] MEDS: LABETALOL HCL 5 MG/ML 20 ML MDV IVP PRN ×3 (01:09→16:07)
[2017-06-05] MEDS: NS 1,000 ML IV SCH ×2 (05:01→14:52)
--- NOTE | 2017-06-05 08:31 | NEUSURGPN ---
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 Mcfarland Plan: -TCD scheudled for MWF -Continue Nimodipine -SBP 100-180 -Total fluid goal 100cc/hr -Neuro intact aside from blurred vision, but patient not wiggling toes this morning bilaterally. moving feet bilaterally -Vision blurry but present this morning -Creatine improved today to 2.8 -Advance diet per there recommendations -Discussed with Dr. Mcfarland -Please call neurosurgery with any questions/concerns Subjective: Mild headache Objective: NAD Alert and answered questions in [place] appropriately. Some translation assistance from family in room Catheter Insertion Date: 06/03/17 - Physician Discussed Patient with : [facility] Physical Exam - Vitals, I&O, Labs I and O 06/04/17 06/05/17 06/06/17 05:59 05:59 05:59 Intake Total 4997 4728 Output Total 1325 1950 Balance 3672 2778 Weight 79.4 kg 76.8 kg Intake: Oral (ml) 0 1110 IV Infused (ml) 4997 3618 Ns 1,000 ml @ 125 mls/hr 2648 2689 IV CONT BRIDGETT Rx#: [id number] Sodium Bicarbonate 150 1085 meq In D5w 1,000 ml @ Per Protocol IV CONT BRIDGETT Rx# :[id number] niCARdipine 50 mg In D5w 1264 929 250 ml @ Per Protocol IV CONT BRIDGETT Rx#:[id number] Output: Urine (ml) 1325 1950 Catheter 1325 700 Incontinence 250 Urinal 1000 Other: Intake Quantity Yes Sufficient Output Comment Catheter condom cath Number of Voids Incontinence 1 Urinal 1 Number of Stools Catheter 0 Incontinence 0 Bladder Scan Volume (ml) Urinal 0 Post Void Residual Scan Volume (ml) Catheter 140 Vital Signs Temp Pulse Resp BP Pulse Ox 36.8 C 71 16 148/78 H 95 06/05/17 06:00 06/05/17 08:00 06/05/17 08:00 06/05/17 08:00 06/05/17 08:00 Laboratory Results 06/04/17 04:30 06/05/17 04:25 ICD10 Worksheet Patient Problems: Problems Problem Status Onset Hypertensive emergency Acute Subarachnoid hemorrhage Acute
--- NOTE | 2017-06-05 08:55 | PDINTPN ---
Senior Specialist Progress Note Assessment/Plan: Assessment/plan: * Acute subarachnoid hemorrhage * Basilar artery aneurysm-status post coiling * Possible old lacunar stroke * Mental status-alert to person and month. A little better today P * Hypertension-reasonably well controlled. -continue Cardene and monitor closely. * Chronic renal insufficiency-improved creatinine -follow closely * Pulmonary hypertension * VT prophylaxis * Stress ulcer prophylaxis * Pain * Mild anemia-continue to follow * PT/OT * Speech Subjective: Sitting up in bed. Resting comfortably. Objective: Vital Signs Temp Pulse Resp BP Pulse Ox 36.8 C 71 16 148/78 H 95 06/05/17 06:00 06/05/17 08:00 06/05/17 08:00 06/05/17 08:00 06/05/17 08:00 Laboratory Results 06/04/17 04:30 06/05/17 04:25 06/04/17 06/05/17 06/06/17 05:59 05:59 05:59 Intake Total 4997 4728 Output Total 1325 1950 Balance 3672 2778 PT 12.7 SEC (12.0-15.0) 06/02/17 15:22 INR 0.93 (0.83-1.16) 06/02/17 15:22 - Time Spent With Patient Time Spent With Patient: 35 min of critical care time spent with patient, over 1/2 involved with coordination of care or counseling. Case discussed with nursing. Physical Exam - Physical Exam General Appearance: alert, no apparent distress EENT: PERRL/EOMI, normal ENT inspection Neck: non-tender, full range of motion Respiratory: chest non-tender, lungs clear Cardiac/Chest: normal peripheral pulses, regular rate, rhythm Abdomen: normal bowel sounds, non-tender, soft Male Genitalia: deferred Rectal: deferred Skin: normal color, warm/dry Extremities: non-tender Neuro/Psych: alert ICD10 Worksheet Patient Problems: Problems Problem Status Onset Hypertensive emergency Acute Subarachnoid hemorrhage Acute
[2017-06-05] MEDS ORDERED: FAMOTIDINE 20 MG/NACL 50 ML IV SCH (09:00)
[2017-06-05] MEDS: FAMOTIDINE 20 MG TAB PO SCH (09:24)
[2017-06-05] MEDS: TAMSULOSIN HCL 0.4 MG CAP PO SCH (09:24)
[2017-06-05] MEDS: ONDANSETRON 4 MG/2 ML VIAL IVP PRN (09:25)
[2017-06-05] MEDS: LORazepam 2 MG/ML INJ IVP PRN ×3 (10:30→23:29)
--- NOTE | 2017-06-05 13:29 | HOSPPROG ---
Hospitalist Progress Note Assessment/Plan: 46 yo M w/SAH 2/2 aneurysmal bleed #SAH: 2/2 aneurysmal bleed and s/p coiling, repeat head CT personally reviewed and there is no e/o new bleed or extension of prior bleed. Has not had neuro sxs other than blurry vision (resolved) and weakness in the feet bilaterally ( unclear if this is related to his SAH) #Acute encephalopathy: due to SAH and possibly delirium, patient more alert and interactive today #Basilar artery aneurysm: sp coil as above # elevated trop: likely 2/2 intracranial process, echo without suggestion of ischemia #Suspected CKD: related to long standing HTN and improved since admission #Hypertensive crisis: controlled with Nicardipine, labetalol--goal is to keep sbp < 180 #Social: and kids live in [place] but has other family available here # anxiety: will add ativan, patient agitated and anxious today, states it is due to being in the hospital this long #Diet: regular diet #DVT: SCDs #Dispo: IP status Care plan reviewed with Dr. Ruby. Interviewed patient with help of snorkelling instructor present at bedside. Subjective: no significant overnight events, patient is anxious today and a bit agitated, generally uncomfortable and pain in the back Objective: Vital Signs Temp Pulse Resp BP Pulse Ox 36.8 C 85 17 152/117 H 93 06/05/17 06:00 06/05/17 12:00 06/05/17 12:00 06/05/17 12:00 06/05/17 12:00 Laboratory Results 06/04/17 04:30 06/05/17 04:25 06/04/17 06/05/17 06/06/17 05:59 05:59 05:59 Intake Total 4997 4728 Output Total 1325 1950 Balance 3672 2778 PT 12.7 SEC (12.0-15.0) 06/02/17 15:22 INR 0.93 (0.83-1.16) 06/02/17 15:22 agitated anxious anicteric op clear rrr no mrg cta b soft nt nd no cce warm dry wel perfused oriented ICD10 Worksheet Patient Problems: Problems Problem Status Onset Hypertensive emergency Acute Subarachnoid hemorrhage Acute
[2017-06-05] MEDS: NICARDIPINE IV SCH (21:31)
[2017-06-05] MEDS: D5W IV SCH (21:31)
[2017-06-05] MEDS ORDERED: HALOPERIDOL LACT 5 MG/ML INJ IVP ONE (22:15)
[2017-06-06] MEDS: LABETALOL HCL 5 MG/ML 20 ML MDV IVP PRN ×2 (00:06→01:20)
[2017-06-06] MEDS: niMODipine 30 MG CAP PO SCH ×6 (01:46→20:06)
[2017-06-06] MEDS: HYDROmorphone HCL/NS 0.5 MG/ML SYR IVP PRN ×2 (01:46→11:59)
[2017-06-06] MEDS: ACETAMINOPHEN 325 MG TAB PO PRN (01:46)
[2017-06-06] MEDS: NICARDIPINE IV SCH (01:56)
[2017-06-06] MEDS: D5W IV SCH (01:56)
--- NOTE | 2017-06-06 07:22 | NEUSURGPN ---
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 Mcfarland Plan: -TCD scheduled for MWF-ordered already for today -Continue Nimodipine -SBP 100-180 -Total fluid goal 100cc/hr -Neuro intact aside from blurred vision, patient TARYN x 4. moving feet bilaterally -Vision blurry yesterday. Will get dietary server to see pt and confirm it this is still present-may consult Opthalmology -creatine improved yesterday to 2.8 now at 2.4 -Advance diet per recommendations -Pt seen and examined by Dr. Mcfarland as well -Please call neurosurgery with any questions/concerns Subjective: No new complaints overnight. No new events per RN. No f/c/n/v/d. Objective: NAD Awake and Alert answered some questions in Malagasy appropriately PERRLA/EOMI no droop TARYN x 4 to command Neuro Check Frequency: per routine Urinary Catheter in Place: No Catheter Insertion Date: 06/03/17 - Physician Discussed Patient with Dr.: Mcfarland Patient Seen by : [facility] Physical Exam - Vitals, I&O, Labs I and O 06/05/17 06/06/17 06/07/17 05:59 05:59 05:59 Intake Total 4728 3937 Output Total 1950 4700 Balance 2778 -763 Weight 76.8 kg Intake: Oral (ml) 1110 1910 IV Infused (ml) 3618 2027 Ns 1,000 ml @ 125 mls/hr 2689 1652 IV CONT BRIDGETT Rx#: [id number] niCARdipine 50 mg In D5w 929 375 250 ml @ Per Protocol IV CONT BRIDGETT Rx#:[id number] Output: Urine (ml) 1950 4700 Catheter 700 1300 Incontinence 250 2700 Urinal 1000 700 Other: Intake Quantity Yes Sufficient Number of Voids Incontinence 1 2 Urinal 1 Number of Stools Incontinence 0 Vital Signs Temp Pulse Resp BP Pulse Ox 37.4 C 85 16 150/75 H 97 06/06/17 04:00 06/06/17 06:00 06/06/17 06:00 06/06/17 06:00 06/06/17 06:00 Laboratory Results 06/04/17 04:30 04/11/18 04:50 ICD10 Worksheet Patient Problems: Problems Problem Status Onset Hypertensive emergency Acute Subarachnoid hemorrhage Acute
--- NOTE | 2017-06-06 08:56 | PDINTPN ---
Safety Attendant Progress Note Assessment/Plan: Assessment/plan: * Acute subarachnoid hemorrhage -repeat CT scan yesterday showed no change * Basilar artery aneurysm-status post coiling * Possible old lacunar stroke * Mental status-alert to person and month. A little better today P * Hypertension-reasonably well controlled. -continue Cardene and monitor closely. * Chronic renal insufficiency-improved creatinine down to 2.4 -follow closely * Pulmonary hypertension * VT prophylaxis * Stress ulcer prophylaxis * Pain * Mild anemia-continue to follow * Weakness-continue PT/OT * Speech Subjective: Sitting up in bed. Appears comfortable. Objective: Vital Signs Temp Pulse Resp BP Pulse Ox 37.4 C 85 16 150/75 H 97 06/06/17 04:00 06/06/17 06:00 06/06/17 06:00 06/06/17 06:00 06/06/17 06:00 Laboratory Results 06/04/17 04:30 06/06/17 04:50 06/05/17 06/06/17 06/07/17 05:59 05:59 05:59 Intake Total 4741 3937 Output Total 1950 4700 Balance 2778 -763 PT 12.7 SEC (12.0-15.0) 06/02/17 15:22 INR 0.93 (0.83-1.16) 06/02/17 15:22 - Time Spent With Patient Time Spent With Patient: 25 min of time spent with patient, over half involved with coordination of care counseling Physical Exam - Physical Exam General Appearance: WD/WN, alert, no apparent distress EENT: PERRL/EOMI, normal ENT inspection Neck: non-tender, full range of motion, supple, normal inspection Respiratory: chest non-tender, lungs clear, normal breath sounds Cardiac/Chest: normal peripheral pulses, regular rate, rhythm Peripheral Pulses: 2+: carotid (R), carotid (L), femoral (R), femoral (L), dorsalis-pedis (R), dorsalis-pedis (L) Abdomen: normal bowel sounds, non-tender, soft Male Genitalia: deferred Rectal: deferred Skin: normal color, warm/dry Extremities: non-tender Neuro/Psych: alert ICD10 Worksheet Patient Problems: Problems Problem Status Onset Hypertensive emergency Acute Subarachnoid hemorrhage Acute
[2017-06-06] MEDS ORDERED: NS 500 ML IV ONE (09:30)
[2017-06-06] MEDS: TAMSULOSIN HCL 0.4 MG CAP PO SCH (09:55)
[2017-06-06] MEDS: FAMOTIDINE 20 MG TAB PO SCH (09:55)
--- NOTE | 2017-06-06 15:47 | HOSPPROG ---
Hospitalist Progress Note Assessment/Plan: Assessment/Plan: 46 yo M p/w hypertensive emergency resulting in acute subarachnoid hemorrhage in setting of basilar artery aneurysm, HINA on suspected CKD stage III, acute encephalopathy # Acute Subarachnoid Hemorrhage: 2/2 aneurysmal bleed 2/2 HTN emergency, requiring coiling, repeat head CT w/o extension - resulting in headache, tx per NSGY # Acute encephalopathy: Evidenced by global brain dysfunction characterized as poor responsiveness, delayed verbal interactiveness, poor concentration, all of which are acute changes from his baseline and due to SAH - patient w/ ongoing concentration 0/7 today, does not currently have capacity to make medical decisions, case mgmt verified proxy as brother Jorge if/when medical emergency arises # Basilar artery aneurysm: s/p coiling, goal SBP 170-190 per NSGY given likely vasospasm, given 500cc NS # Acute demand ischemia: 2/2 supply/demand mismatch in setting of HTN emergency , Echo w/o e/o infarct w/o focal wall motion abnl # HINA on suspected CKD Stage III: Acute injury 2/2 HTN emergency, downtrended s/ p controlling BP, BEN demonstrating degree of underlying medical renal disease, likely 2/2 uncontrolled HTN # Hypertensive emergency: Evidenced by SBP 251 + end-organ failure (SAH, HINA, demand ischemia), initially controlled w/ nicardipine gtt, but now w/ permissive HTN (goal 170-190) given possible vasospasm s/p coiling # Chronic lower back pain: Provide PRN oxy IR, heat pad, tylenol scheduled # Leukocytosis: Unclear etiology, CXR w/o aspiration (personally interpreted), cont to trend, possibly stress in setting of above # Diet: regular diet # DVT: SCDs, pharm contraindicated # Code: Full # Dispo: ADD uncertain, remains critically ill 35 min of critical care time spent at bedside with patient, coordinating care with nurse, keycase assembler, and Dr. Ruby, specifically addressing the patient's acute encephalopathy and hypertensive emergency with concerns of worsening ataxia and lower extremity symptoms, patient remains critically ill with high risk of worsening morbidity and/or mortality. Subjective: Nurse reports patient's gait has worsened this morning, lower extremities appear weaker, patient reports back pain in the lumbar spine Objective: Vital Signs Temp Pulse Resp BP Pulse Ox 37.5 C 107 H 21 H 174/91 H 95 06/06/17 12:00 06/06/17 12:00 06/06/17 12:00 06/06/17 12:00 06/06/17 12:00 Laboratory Results 06/04/17 04:30 06/06/17 04:50 06/05/17 06/06/17 06/07/17 05:59 05:59 05:59 Intake Total 4764 3939 Output Total 8435 4700 Balance 2778 -763 PT 12.7 SEC (12.0-15.0) 06/02/17 15:22 INR 0.93 (0.83-1.16) 06/02/17 15:22 - Physical Exam Constitutional: appears nourished, uncomfortable, No no apparent distress (Mild) , No not in pain (Moderate) Eyes: PERRL, EOMI, scleral injection Cardiovascular: systolic murmur (1/6 at apex), No irregularly irregular, No tachycardia, No edema Respiratory: no respiratory distress, no rales or rhonchi, clear to auscultation Gastrointestinal: normoactive bowel sounds, soft, non-tender abdomen, no palpable masses Neurologic: AAOx3, sensation intact bilaterally, CN II-XII Intact, other (Some delayed verbal responses, some sluggish ocular movements), No weakness (5/5 motor strength bilateral upper and lower extremities) Psychiatric: not anxious, flat affect, agitated (Secondary to pain), other ( Concentration 0/7) ICD10 Worksheet Patient Problems: Problems Problem Status Onset Hypertensive emergency Acute Subarachnoid hemorrhage Acute
[2017-06-06] MEDS: LORazepam 2 MG/ML INJ IVP PRN (16:26)
[2017-06-06] MEDS: ACETAMINOPHEN 500 MG TAB PO SCH ×2 (16:29→20:06)
--- NOTE | 2017-06-06 17:11 | ASMTCMCOM ---
CM Note CM Note Notes: Met with patient's [id number] (Tasha) with interpretor Hannah, to discuss establishing a proxy for patient. Tasha states patient lives with them and she is to his brother, Jorge. Tasha states brother Jorge is appropriate to serve as proxy. Prepared forms and will finalize them in the morning. The phone number listed in the chart and on the face sheet is incorrect. We hope to get the phone number when Tasha returns later tonight. Tasha also states she and patient's brother Jorge can take patient back into their home and support his ongoing recovery. spoke with patient's nurse and asked them to get Jorge's phone number, since the one in the chart is inaccurate. D/C plan will be for patient to return to his brother's home and if there are some cale services appropriate to set up we will do that. CM will follow. Date Signed: 06/06/2017 05:10 PM Electronically Signed By:Anabella Nicholson LCSW
[2017-06-06] MEDS: IBUPROFEN 600 MG TAB PO PRN (20:50)
[2017-06-06] MEDS: oxyCODONE IR 5 MG TAB PO PRN (22:56)
[2017-06-07] MEDS: niMODipine 30 MG CAP PO SCH ×6 (01:25→22:16)
[2017-06-07] MEDS: oxyCODONE IR 5 MG TAB PO PRN (02:54)
[2017-06-07 04:53] LABS: PLATELET COUNT 178 10^3/uL (150-400)
[2017-06-07] MEDS: IBUPROFEN 600 MG TAB PO PRN (06:09)
[2017-06-07] MEDS: NS 1,000 ML IV SCH ×2 (07:45→16:03)
--- NOTE | 2017-06-07 08:33 | NEUSURGPN ---
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 Mcfarland Plan: -TCD scheudled for MWF -Continue Nimodipine -SBP 100-180 -Total fluid goal 100cc/hr -Neuro intact aside from blurred vision, sitting on bedside comode -Creatine improved today to 2.3 -PT/OT/RAILS DEVELOPER -Discussed with Dr. Mcfarland -Please call neurosurgery with any questions/concerns Subjective: Denies any pain this morning. Objective: NAD A&O3. EOMI, PERRLA, Vision grossly intact. CN II-XII grossly intact. MAEx4 Catheter Insertion Date: 06/03/17 - Physician Discussed Patient with : [facility] Physical Exam - Vitals, I&O, Labs I and O 06/06/17 06/07/17 06/08/17 05:59 05:59 05:59 Intake Total 3937 2542 Output Total 4700 3375 575 Balance -763 -833 -575 Intake: Oral (ml) 1910 1000 IV Infused (ml) 2027 1542 Ns 1,000 ml @ 125 mls/hr 1652 1339 IV CONT BRIDGETT Rx#: [id number] niCARdipine 50 mg In D5w 375 203 250 ml @ Per Protocol IV CONT BRIDGETT Rx#:[id number] Output: Urine (ml) 4700 3375 575 Bedside Commode 75 100 Catheter 1300 Incontinence 2700 2775 Urinal 700 525 475 Other: Number of Voids Bedside Commode 1 Incontinence 2 1 Number of Stools Bedside Commode 1 Incontinence 2 Vital Signs Temp Pulse Resp BP Pulse Ox 36.7 C 86 16 189/113 H 92 06/07/17 08:00 06/07/17 08:00 06/07/17 08:00 06/07/17 08:00 06/07/17 07:00 Laboratory Results 06/07/17 04:45 06/07/17 04:45 ICD10 Worksheet Patient Problems: Problems Problem Status Onset Hypertensive emergency Acute Subarachnoid hemorrhage Acute
[2017-06-07] MEDS: ACETAMINOPHEN 500 MG TAB PO SCH ×3 (08:57→22:16)
[2017-06-07] MEDS: TAMSULOSIN HCL 0.4 MG CAP PO SCH (09:00)
[2017-06-07] MEDS: FAMOTIDINE 20 MG TAB PO SCH (09:00)
[2017-06-07] MEDS: NICARDIPINE IV SCH ×3 (09:09→21:22)
[2017-06-07] MEDS: D5W IV SCH ×3 (09:09→21:22)
--- NOTE | 2017-06-07 09:32 | PDINTPN ---
Console Manager Progress Note Assessment/Plan: Assessment/plan: * Acute subarachnoid hemorrhage -Doppler again today * Basilar artery aneurysm-status post coiling * Possible old lacunar stroke * Mental status-alert to person and month. Improved * Hypertension-reasonably well controlled. -continue Cardene and monitor closely. * Chronic renal insufficiency-continues to improve -follow closely * Pulmonary hypertension * VT prophylaxis * Stress ulcer prophylaxis * Pain * Mild anemia-continue to follow * Weakness-continue PT/OT * Speech * Disposition-query if stable for transfer to floor Overall patient continues to improve Subjective: Sitting up in chair eating breakfast. Appears comfortable. Objective: Vital Signs Temp Pulse Resp BP Pulse Ox 36.7 C 74 16 199/114 H 92 06/07/17 08:00 06/07/17 09:00 06/07/17 09:00 06/07/17 09:00 06/07/17 07:00 Laboratory Results 06/07/17 04:45 06/07/17 04:45 06/06/17 06/07/17 06/08/17 05:59 05:59 05:59 Intake Total 3937 2542 250 Output Total 4700 3375 1000 Balance -763 -833 -750 PT 12.7 SEC (12.0-15.0) 06/02/17 15:22 INR 0.93 (0.83-1.16) 06/02/17 15:22 - Time Spent With Patient Time Spent With Patient: 25 min of time spent with patient, over 1/2 involved with coordination of care or counseling Physical Exam - Physical Exam General Appearance: WD/WN, alert, no apparent distress EENT: PERRL/EOMI, normal ENT inspection Neck: non-tender, full range of motion, supple, normal inspection Respiratory: chest non-tender, lungs clear, normal breath sounds Cardiac/Chest: normal peripheral pulses, regular rate, rhythm Abdomen: normal bowel sounds, non-tender, soft Male Genitalia: deferred Rectal: deferred Skin: normal color, warm/dry Extremities: non-tender Neuro/Psych: alert ICD10 Worksheet Patient Problems: Problems Problem Status Onset Hypertensive emergency Acute Subarachnoid hemorrhage Acute
--- NOTE | 2017-06-07 10:09 | GCON ---
[f rep st] CONSULTATION OPHTHALMOLOGY CONSULT DATE OF CONSULTATION: 06/06/2017 REASON FOR CONSULTATION: Blurred vision. HISTORY OF PRESENT ILLNESS: Patient is a 46-year-old man who was admitted with basilar artery aneurysm and subarachnoid hemorrhage and is status post neurosurgical coiling of his aneurysm. He is currently in the ICU. CHIEF COMPLAINT: Blurred vision, which he describes as seeing 3 objects ( triplopia) sometimes and with the vision not clear. He states this started with the onset of his current condition. He denies any previous history of eye problems or blurry vision. He does not wear glasses. PAST MEDICAL HISTORY: Other than his current medical condition, he is unaware of previous medical problems but reports taking blood pressure medicine previously. SOCIAL HISTORY: Denies smoking. Medications: Currently treated for blood pressure control in the ICU, previous history of taking a blood pressure medication. REVIEW OF SYSTEMS: Other than current issue he notes ongoing headache and abdominal pain with hiccups. PHYSICAL EXAMINATION: His current blood pressure is 201/124. He is currently coherent and oriented although has some expressive difficulty. External ocular exam is normal. Extraocular muscles are normal with normal motility and no ocular deviation. His pupils are 5 mm, reacting to 3 mm equally with no afferent pupillary defect. His conjunctiva, cornea, iris, lens, vitreous appear normal. The visual acuity without correction is at least 8-point font in each eye without correction with the ability to see some numbers of a smaller font. Visual field was full to counting fingers. His dilated funduscopic examination revealed multiple scattered intraretinal hemorrhages and cotton wool spots consistent with hypertensive retinopathy. Both optic nerves have 1+ papilledema. There is no vitreous hemorrhage. 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 There is no evidence of Tersons syndrome or vitreous hemorrhage. PLAN: Recommend ongoing control of his hypertension. He should have a followup with Ophthalmology upon discharge. /[id number]/MODL MTDD
[2017-06-07] MEDS: METOPROLOL SUCCINATE XR 25 MG TAB PO SCH (12:16)
--- NOTE | 2017-06-07 16:57 | ASMTCMCOM ---
CM Note CM Note Notes: Spoke with patient today who approved his brother being his proxy/MDPOA. Located the phone numbers for Jorge [phone] and his , Jill, [phone]. Brandi, supply tech and myself got a phone signiture from [employer] to complete the proxy form. A copy was sent to medical records and the original was placed in the patient's chart. CM will follow. Date Signed: 06/07/2017 04:56 PM Electronically Signed By:Anabella Nicholson LCSW
--- NOTE | 2017-06-07 18:34 | HOSPPROG ---
Hospitalist Progress Note Assessment/Plan: Assessment/Plan: 46 yo M p/w hypertensive emergency resulting in acute subarachnoid hemorrhage in setting of basilar artery aneurysm, HINA on suspected CKD stage III, acute encephalopathy # Acute Subarachnoid Hemorrhage: 2/2 aneurysmal bleed 2/2 HTN emergency, requiring coiling, repeat head CT w/o extension - resulting in headache, tx per NSGY # Acute encephalopathy: Evidenced by global brain dysfunction characterized as poor responsiveness, delayed verbal interactiveness, poor concentration, all of which are acute changes from his baseline and due to SAH - improving level of interactiveness today, but remains lethargic # Basilar artery aneurysm: s/p coiling, goal SBP 170-190 per NSGY given likely vasospasm, cont on nimodipine to tx vasospasm # Acute demand ischemia: 2/2 supply/demand mismatch in setting of HTN emergency , Echo w/o e/o infarct w/o focal wall motion abnl # HINA on suspected CKD Stage III: Acute injury 2/2 HTN emergency, downtrended s/ p controlling BP, BEN demonstrating degree of underlying medical renal disease, likely 2/2 uncontrolled HTN - cont to monitor Cr, A1c pending # Hypertensive emergency: Evidenced by SBP 251 + end-organ failure (SAH, HINA, demand ischemia), initially controlled w/ nicardipine gtt, but now w/ permissive HTN (goal 170-190) given possible vasospasm s/p coiling, d/w Dr. Ruby on rounds, we agreed cont nicardipine PRN # Chronic lower back pain: Provide PRN oxy IR, heat pad, tylenol scheduled # Leukocytosis: Resolved # Diet: regular diet # DVT: SCDs, pharm contraindicated # Code: Full # Dispo: ADD uncertain, remains critically ill High-level medical complexity, with high risk of worsening morbidity and/or mortality secondary to the issues outlined above. Subjective: less pain, feeling sleepy Objective: Vital Signs Temp Pulse Resp BP Pulse Ox 36.7 C 104 H 19 151/82 H 94 06/07/17 12:00 06/07/17 17:00 06/07/17 17:00 06/07/17 17:00 06/07/17 17:00 Laboratory Results 06/07/17 04:45 06/07/17 04:45 06/06/17 06/07/17 06/08/17 05:59 05:59 05:59 Intake Total 9086 6389 1848 Output Total 0800 1523 2024 Balance -763 -833 -180 PT 12.7 SEC (12.0-15.0) 06/02/17 15:22 INR 0.93 (0.83-1.16) 06/02/17 15:22 - Physical Exam Constitutional: no apparent distress, appears nourished, not in pain, No uncomfortable Cardiovascular: regular rate and rhythym, no murmur, rub, or gallop, No edema Respiratory: no respiratory distress, no rales or rhonchi, clear to auscultation Gastrointestinal: normoactive bowel sounds, soft, non-tender abdomen, no palpable masses Neurologic: AAOx3, sensation intact bilaterally, CN II-XII Intact, No weakness ( motor 5/5 bilat) Psychiatric: not encephalopathic, flat affect, other (lethargic but arousable to voice), No agitated ICD10 Worksheet Patient Problems: Problems Problem Status Onset Subarachnoid hemorrhage Acute Hypertensive emergency Acute
[2017-06-08] MEDS: NS 1,000 ML IV SCH ×3 (01:14→21:25)
[2017-06-08] MEDS: niMODipine 30 MG CAP PO SCH ×6 (02:38→21:25)
[2017-06-08] MEDS: D5W IV SCH (03:19)
[2017-06-08] MEDS: NICARDIPINE IV SCH (03:19)
[2017-06-08] MEDS: ACETAMINOPHEN 500 MG TAB PO SCH ×3 (07:25→21:25)
[2017-06-08] MEDS: LABETALOL HCL 5 MG/ML 20 ML MDV IVP PRN (07:26)
[2017-06-08] MEDS: METOPROLOL SUCCINATE XR 25 MG TAB PO SCH (08:59)
[2017-06-08] MEDS: FAMOTIDINE 20 MG TAB PO SCH (08:59)
[2017-06-08] MEDS: TAMSULOSIN HCL 0.4 MG CAP PO SCH (08:59)
--- NOTE | 2017-06-08 09:00 | PDINTPN ---
Property Manager Progress Note Assessment/Plan: Assessment/plan: * Acute subarachnoid hemorrhage -Doppler again today * Basilar artery aneurysm-status post coiling * Possible old lacunar stroke * Mental status-alert to person and month. Improved * Hypertension-reasonably well controlled. -continue Cardene and monitor closely. * Chronic renal insufficiency-continues to improve. Creatinine remains at 2.4 -follow closely * Pulmonary hypertension * Fall-out of bed last night. No apparent head trauma. Patient is not complaining of any pain. -follow * VT prophylaxis * Stress ulcer prophylaxis * Pain * Mild anemia-continue to follow * Weakness-continue PT/OT * Speech * Disposition-query if stable for transfer to floor Overall patient continues to improve 06/08/17 09:00 Subjective: Sitting up in chair. Through the rfid systems architect patient states that he is doing quite well. Slept well last night and has good appetite. Objective: Vital Signs Temp Pulse Resp BP Pulse Ox 37.1 C 93 20 160/97 H 95 06/08/17 04:00 06/08/17 06:00 06/08/17 06:00 06/08/17 06:00 06/08/17 04:00 Laboratory Results 06/07/17 04:45 06/08/17 07:30 06/07/17 06/08/17 06/09/17 05:59 05:59 05:59 Intake Total 2542 6066 Output Total 3375 4445 Balance -833 1621 PT 12.7 SEC (12.0-15.0) 06/02/17 15:22 INR 0.93 (0.83-1.16) 06/02/17 15:22 - Time Spent With Patient Time Spent With Patient: 25 min of time spent with patient, over 1/2 involved with coordination of care or counseling Physical Exam - Physical Exam General Appearance: WD/WN, alert, no apparent distress EENT: PERRL/EOMI, normal ENT inspection Neck: non-tender, full range of motion Respiratory: chest non-tender, lungs clear, normal breath sounds Cardiac/Chest: normal peripheral pulses, regular rate, rhythm Abdomen: normal bowel sounds, non-tender, soft Male Genitalia: deferred Rectal: deferred Skin: normal color, warm/dry Extremities: non-tender ICD10 Worksheet Patient Problems: Problems Problem Status Onset Hypertensive emergency Acute Subarachnoid hemorrhage Acute
--- NOTE | 2017-06-08 09:14 | NEUSURGPN ---
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 Mcfarland Plan: -TCD scheduled for MWF -Continue Nimodipine -SBP 100-180. Patient started on Metoprolol 25mg q day, will increase to 50mg qday. Nicardipine currently on as well. -Total fluid goal 100cc/hr -Neuro intact aside from blurred vision, sitting in chair this morning. -Increased impulsivity over night. Have written for Seroquel to start tonight. 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 Mcfarland -Please call neurosurgery with any questions/concerns Subjective: Headache. Objective: NAD alert and follows commands appropriately. CN II-XII grossly intact. EOMI PERRLA MAEx4 5/ and equal in BUE and BLE. Catheter Insertion Date: 06/03/17 - Physician Discussed Patient with Dr.: Mcfarland Neurosurgery Physical Exam - Vitals, I&O, Labs I and O 06/07/17 06/08/17 06/09/17 05:59 05:59 05:59 Intake Total 2542 6066 Output Total 3375 4445 Balance -833 1621 Intake: Oral (ml) 1000 2840 IV Infused (ml) 1542 3226 Ns 1,000 ml @ 125 mls/hr 1339 2482 IV CONT BRIDGETT Rx#: [id number] niCARdipine 50 mg In D5w 203 744 250 ml @ Per Protocol IV CONT BRIDGETT Rx#:[id number] Output: Urine (ml) 3375 4445 Bedside Commode 75 100 Incontinence 2775 Urinal 525 4345 Other: Output Comment Incontinence unable to stop flow until urinal placed Number of Voids Bedside Commode 1 Incontinence 1 1 Urinal 1 Number of Stools Bedside Commode 1 Incontinence 2 Vital Signs Temp Pulse Resp BP Pulse Ox 37.0 C 86 22 H 157/69 H 91 L 06/08/17 08:00 06/08/17 08:00 06/08/17 08:00 06/08/17 08:00 06/08/17 08:00 Laboratory Results 06/07/17 04:45 06/08/17 07:30 ICD10 Worksheet Patient Problems: Problems Problem Status Onset Hypertensive emergency Acute Subarachnoid hemorrhage Acute
[2017-06-08] MEDS ORDERED: METOPROLOL SUCCINATE XR 25 MG TAB PO SCH (09:29)
[2017-06-08] MEDS ORDERED: METOPROLOL SUCCINATE XR 25 MG TAB PO ONE (09:45)
--- NOTE | 2017-06-08 16:48 | HOSPPROG ---
Hospitalist Progress Note Assessment/Plan: Assessment/Plan: 46 yo M p/w hypertensive emergency resulting in acute subarachnoid hemorrhage in setting of basilar artery aneurysm, HINA on suspected CKD stage III, acute encephalopathy # Acute Subarachnoid Hemorrhage: 2/2 aneurysmal bleed 2/2 HTN emergency, requiring coiling, repeat head CT w/o extension - resulting in headache, tx per NSGY - keep SBP < 180, increased PO metop succ to 50mg daily today w/ IV PRN hydralazine and wean off of cardene gtt # Acute encephalopathy: Evidenced by global brain dysfunction characterized as poor responsiveness, delayed verbal interactiveness, poor concentration, all of which are acute changes from his baseline and due to SAH - improving level of interactiveness today # Basilar artery aneurysm: s/p coiling, cont on nimodipine to tx vasospasm - RN to confirm w/ NSGY whether IVF can be discontinued now that he is mau PO # Acute demand ischemia: 2/2 supply/demand mismatch in setting of HTN emergency , Echo w/o e/o infarct w/o focal wall motion abnl # HINA on suspected CKD Stage III: Acute injury 2/2 HTN emergency, downtrended s/ p controlling BP, BEN demonstrating degree of underlying medical renal disease, likely 2/2 uncontrolled HTN - cont to monitor Cr, A1c wnl # Hypertensive emergency: Evidenced by SBP 251 + end-organ failure (SAH, HINA, demand ischemia), d/w Dr. Ruby on team rounds, we would rec stopping IVF and weaning cardene gtt # Chronic lower back pain: Provide PRN oxy IR, heat pad, tylenol scheduled # Leukocytosis: Resolved # Hypertensive retinopathy: Acute, resulting in his ongoing visual changes, no e /o hemorrhage on ophtho exam 06/06 - f/u recommended w/ ophtho on discharge # Diet: regular diet # DVT: SCDs, pharm contraindicated # Code: Full # Dispo: ADD uncertain, remains on cardene gtt High-level medical complexity, with high risk of worsening morbidity and/or mortality secondary to the issues outlined above. Subjective: Patient reports ongoing blurred vision Objective: Vital Signs Temp Pulse Resp BP Pulse Ox 37 C 79 19 177/97 H 93 06/08/17 12:00 06/08/17 16:00 06/08/17 16:00 06/08/17 16:00 06/08/17 16:00 Laboratory Results 06/07/17 04:45 06/08/17 07:30 06/07/17 06/08/17 06/09/17 05:59 05:59 05:59 Intake Total 2542 60 Output Total 6140 4464 Balance -833 1621 PT 12.7 SEC (12.0-15.0) 06/02/17 15:22 INR 0.93 (0.83-1.16) 06/02/17 15:22 - Physical Exam Constitutional: no apparent distress, appears nourished, not in pain, No uncomfortable Cardiovascular: regular rate and rhythym, no murmur, rub, or gallop, No edema Respiratory: no respiratory distress, no rales or rhonchi, clear to auscultation Gastrointestinal: normoactive bowel sounds, soft, non-tender abdomen, no palpable masses Neurologic: AAOx3, sensation intact bilaterally, weakness (subjective RLE; bilat weakness on dorsiflexion), CN II-XII Intact, No facial droop Psychiatric: not anxious, not encephalopathic, flat affect, No agitated ICD10 Worksheet Patient Problems: Problems Problem Status Onset Subarachnoid hemorrhage Acute Hypertensive emergency Acute
[2017-06-08] MEDS: HYDROCODONE/APAP 5/325 TAB PO PRN (19:40)
[2017-06-08] MEDS ORDERED: QUEtiapine FUMARATE 25 MG TAB PO ONE (20:00)
[2017-06-08] MEDS: hydrALAZINE 20 MG/ML VIAL IVP PRN (20:17)
[2017-06-09] MEDS: niMODipine 30 MG CAP PO SCH ×6 (01:52→21:06)
[2017-06-09] MEDS: ACETAMINOPHEN 500 MG TAB PO SCH ×3 (07:35→21:08)
[2017-06-09] MEDS: oxyCODONE IR 5 MG TAB PO PRN ×3 (07:36→18:43)
--- NOTE | 2017-06-09 08:54 | PDINTPN ---
[employer] Progress Note Assessment/Plan: Assessment/plan: * Acute subarachnoid hemorrhage -Doppler again today * Basilar artery aneurysm-status post coiling * Possible old lacunar stroke * Mental status-alert to person and month. Improved * Hypertension-reasonably well controlled. -continue Cardene and monitor closely. * Chronic renal insufficiency-creatinine is stabilized -continue to follow * Pulmonary hypertension * Fall-out of bed last night. No apparent head trauma. Patient is not complaining of any pain. -follow * VT prophylaxis * Stress ulcer prophylaxis * Pain -controlled * Mild anemia-continue to follow * Weakness-continue PT/OT * Nutrition-eating well * Disposition-query if stable for transfer to floor Overall patient continues to improve Subjective: Resting comfortably. No current complaints Objective: Vital Signs Temp Pulse Resp BP Pulse Ox 36.9 C 68 17 177/113 H 100 06/08/17 20:00 06/09/17 08:00 06/09/17 08:00 06/09/17 08:00 06/09/17 08:00 Laboratory Results 06/07/17 04:45 06/09/17 05:14 06/08/17 06/09/17 06/10/17 05:59 05:59 05:59 Intake Total 6066 3848 Output Total 4445 5025 225 Balance 1621 -1177 -225 PT 12.7 SEC (12.0-15.0) 06/02/17 15:22 INR 0.93 (0.83-1.16) 06/02/17 15:22 - Time Spent With Patient Time Spent With Patient: 25 min of time spent with patient, over 1/2 involved with coordination of care or counseling. Case discussed with nursing and neurosurgery Physical Exam - Physical Exam General Appearance: alert, no apparent distress EENT: PERRL/EOMI Neck: non-tender, full range of motion, supple, normal inspection Respiratory: chest non-tender, lungs clear, normal breath sounds Cardiac/Chest: normal peripheral pulses, regular rate, rhythm Peripheral Pulses: 2+: carotid (R), carotid (L), femoral (R), femoral (L), dorsalis-pedis (R), dorsalis-pedis (L) Abdomen: normal bowel sounds, non-tender, soft Male Genitalia: deferred Rectal: deferred Skin: normal color, warm/dry Extremities: normal range of motion, non-tender, normal inspection, normal capillary refill ICD10 Worksheet Patient Problems: Problems Problem Status Onset Hypertensive emergency Acute Subarachnoid hemorrhage Acute
[2017-06-09] MEDS ORDERED: METOPROLOL SUCCINATE XR 50 MG TAB PO SCH ×2 (09:00)
[2017-06-09] MEDS: FAMOTIDINE 20 MG TAB PO SCH (09:09)
[2017-06-09] MEDS: TAMSULOSIN HCL 0.4 MG CAP PO SCH (09:12)
--- NOTE | 2017-06-09 10:00 | NEUSURGPN ---
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 Mcfarland Neuro intact this am, states his vision is improving. Plan: -TCD scheduled for MWF -Continue Nimodipine -SBP 180, good to drift high, but attempt to keep <180. increase metoprolol to 100 today. Nicardipine on standbye -q2h neuro check during day, q4h ok during night to allow to rest. -ok to dc fluid goals -ophthalmology consulted to eval vision. 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 Mcfarland -Please call neurosurgery with any questions/concerns Subjective: no complaints today. States his vision is getting better. Asking when he can go home. Objective: NAD, up in chair AAOx4 hypertensive 190/114 last BP EOMI, PEARLA, visual field/ acuity appears grossly intact this am cnii-xii grossly intact MAEx4, 5/5, no pronator drift' SILT Urinary Catheter in Place: No Catheter Insertion Date: 06/03/17 - Physician Discussed Patient with : Bartolo Neurosurgery Physical Exam - Vitals, I&O, Labs I and O 06/08/17 06/09/17 06/10/17 05:59 05:59 05:59 Intake Total 6066 3848 Output Total 4445 5025 225 Balance 1621 -1177 -225 Intake: Oral (ml) 2840 1720 IV Infused (ml) 3226 2128 Ns 1,000 ml @ 75 mls/hr 2482 1963 IV CONT BRIDGETT Rx#: [id number] niCARdipine 50 mg In D5w 744 165 250 ml @ Per Protocol IV CONT BRIDGETT Rx#:[id number] Output: Urine (ml) 4445 5025 225 Bedside Commode 100 1925 Urinal 4345 3100 225 Other: Intake Quantity Yes Sufficient Output Comment Incontinence unable to stop flow until urinal placed Number of Voids Incontinence 1 1 Urinal 1 1 1 Number of Stools Bedside Commode 1 1 0 Vital Signs Temp Pulse Resp BP Pulse Ox 36.9 C 68 17 177/113 H 100 06/08/17 20:00 06/09/17 08:00 06/09/17 08:00 06/09/17 08:00 06/09/17 08:00 Laboratory Results 06/07/17 04:45 06/09/17 05:14 ICD10 Worksheet Patient Problems: Problems Problem Status Onset Hypertensive emergency Acute Subarachnoid hemorrhage Acute
[2017-06-09] MEDS: hydrALAZINE 20 MG/ML VIAL IVP PRN (16:36)
--- NOTE | 2017-06-09 18:19 | HOSPPROG ---
Hospitalist Progress Note Assessment/Plan: Assessment/Plan: 46 yo M p/w hypertensive emergency resulting in acute subarachnoid hemorrhage in setting of basilar artery aneurysm, HINA on suspected CKD stage III, acute encephalopathy # Acute Subarachnoid Hemorrhage: 2/2 aneurysmal bleed 2/2 HTN emergency, requiring coiling, repeat head CT w/o extension - resulting in headache, tx per NSGY - keep SBP < 180, increased PO metop succ to 75mg daily today w/ IV PRN hydralazine and weaned off of cardene gtt - per Dr. Mcfarland, cont q2hr neuro checks x 10 days post-coiling, given high risk of complication, remain in SDU # Acute encephalopathy: Evidenced by global brain dysfunction characterized as poor responsiveness, delayed verbal interactiveness, poor concentration, all of which are acute changes from his baseline and due to SAH - improving level of interactiveness today # Basilar artery aneurysm: s/p coiling, cont on nimodipine to tx vasospasm - d/w NSGY and Dr. Ruby, we agreed to stop IVF now that he's tolerating PO # Acute demand ischemia: 2/2 supply/demand mismatch in setting of HTN emergency , Echo w/o e/o infarct w/o focal wall motion abnl # HINA on suspected CKD Stage III: Acute injury 2/2 HTN emergency, downtrended s/ p controlling BP, BEN demonstrating degree of underlying medical renal disease, likely 2/2 uncontrolled HTN - Cr stabilized at 2.3 # Hypertensive emergency: Evidenced by SBP 251 + end-organ failure (SAH, HINA, demand ischemia), resolved # Chronic lower back pain: Provide PRN oxy IR, heat pad, tylenol scheduled # Leukocytosis: Resolved # Hypertensive retinopathy: Acute, resulting in his ongoing visual changes, no e /o hemorrhage on ophtho exam 06/06 - f/u recommended w/ ophtho on discharge - counseled patient regarding cause of visual changes # Diet: regular diet # DVT: SCDs, pharm contraindicated # Code: Full # Dispo: ADD uncertain Subjective: patient w/ ongoing challenges sleeping at night Objective: Vital Signs Temp Pulse Resp BP Pulse Ox 36.9 C 79 19 166/89 H 96 06/08/17 20:00 06/09/17 16:00 06/09/17 16:00 06/09/17 17:30 06/09/17 16:00 Laboratory Results 06/07/17 04:45 04/14/18 05:14 06/08/17 06/09/17 06/10/17 05:59 05:59 05:59 Intake Total 6066 3848 3241 Output Total 4457 4535 9262 Balance 1621 -1177 -1225 PT 12.7 SEC (12.0-15.0) 06/02/17 15:22 INR 0.93 (0.83-1.16) 06/02/17 15:22 - Physical Exam Constitutional: no apparent distress, appears nourished, not in pain, No uncomfortable Eyes: scleral injection Cardiovascular: regular rate and rhythym, no murmur, rub, or gallop Respiratory: no respiratory distress, no rales or rhonchi, clear to auscultation Gastrointestinal: normoactive bowel sounds, soft, non-tender abdomen, no palpable masses Neurologic: sensation intact bilaterally, CN II-XII Intact, No weakness (motor 5 /5 bilat prox LE, improvements in distal dorsiflexion bilat), No facial droop Psychiatric: interacting appropriately, not anxious, not encephalopathic, thought process linear ICD10 Worksheet Patient Problems: Problems Problem Status Onset Subarachnoid hemorrhage Acute Hypertensive emergency Acute
[2017-06-09] MEDS ORDERED: hydrALAZINE 20 MG/ML VIAL IVP ONE (18:45)
[2017-06-09] MEDS: HYDROmorphone HCL/NS 0.5 MG/ML SYR IVP PRN (18:51)
[2017-06-09] MEDS: niCARdipine/NACL 200 ML IV SCH ×2 (19:20→21:05)
[2017-06-09] MEDS: MELATONIN 3 MG TAB PO SCH (21:05)
[2017-06-09] MEDS: ONDANSETRON 4 MG/2 ML VIAL IVP PRN (21:32)
[2017-06-10] MEDS: PROMETHAZINE HCL 25 MG/ML INJ IVP PRN (00:07)
[2017-06-10] MEDS: HYDROCODONE/APAP 5/325 TAB PO PRN ×4 (00:12→20:48)
[2017-06-10] MEDS: niMODipine 30 MG CAP PO SCH ×6 (01:05→20:48)
[2017-06-10] MEDS: niCARdipine/NACL 200 ML IV SCH (01:05)
--- NOTE | 2017-06-10 07:32 | NEUSURGPN ---
Date of Surgery: 06/03/17 Post Op Day: 7 Assessment/Plan: Assessment: 46 year old admitted with hypertension emergency, ruptured 6mm basilar tip aneurysm and SAH, now s/p coiling on 06/03/[address] Mcfarland Neuro intact this am, states his vision is improving. Plan: -Continue SDU status until 10 days post op -TCD scheduled for MWF -Continue Nimodipine -SBP <180, good to drift high, but attempt to keep <180. increase metoprolol to 100. Nicardipine restarted last night, now on standbye. -q2h neuro check during day, q4h ok during night to allow to rest, continue for 10 days post op. . -ok to dc fluid goals -vision changes related to hypertensive retinopathy per ophthalmology, recommend OP f/u. -PT/OT/COURT SPECIALIST -Discussed with Dr. Mcfarland -Please call neurosurgery with any questions/concerns Subjective: doing well, no c/o headache, no complaint of vision changes. Family member at bedside providing some translation help Objective: NAD, up in chair AAOx4 hypertensive 190/114 last BP EOMI, PEARLA, visual field/ acuity appears grossly intact this am cnii-xii grossly intact MAEx4, 5/5, no pronator drift' SILT Urinary Catheter in Place: No Catheter Insertion Date: 06/03/17 - Physician Discussed Patient with : Bartolo Neurosurgery Physical Exam - Vitals, I&O, Labs I and O 06/09/17 06/10/17 06/11/17 05:59 05:59 05:59 Intake Total 3848 3000 Output Total 5022 5925 Balance -1177 -292 Intake: Oral (ml) 1720 2600 IV Infused (ml) 2128 400 Ns 1,000 ml @ 75 mls/hr 1963 IV CONT BRIDGETT Rx#: [id number] niCARdipine 50 mg In D5w 165 250 ml @ Per Protocol IV CONT BRIDGETT Rx#:[id number] niCARdipine/NACL 200 ml @ 400 Titrate IV CONT BRIDGETT Rx#: [id number] Output: Urine (ml) 6590 5925 Bedside Commode 1925 Toilet 3200 Urinal 3100 2725 Other: Intake Quantity Yes Sufficient Number of Voids Incontinence 1 Toilet 2 Urinal 1 1 Number of Stools Bedside Commode 1 0 Toilet 1 Vital Signs Temp Pulse Resp BP Pulse Ox 36.6 C 82 21 H 149/88 H 96 06/10/17 01:00 06/10/17 04:00 06/10/17 04:00 06/10/17 04:00 06/10/17 04:00 Laboratory Results 06/07/17 04:45 06/09/17 05:14 ICD10 Worksheet Patient Problems: Problems Problem Status Onset Hypertensive emergency Acute Subarachnoid hemorrhage Acute
[2017-06-10] MEDS: TAMSULOSIN HCL 0.4 MG CAP PO SCH (08:32)
[2017-06-10] MEDS: FAMOTIDINE 20 MG TAB PO SCH (08:32)
[2017-06-10] MEDS: ACETAMINOPHEN 500 MG TAB PO SCH ×3 (08:33→20:49)
[2017-06-10] MEDS: METOPROLOL SUCCINATE XR 100 MG TAB PO SCH (08:33)
--- NOTE | 2017-06-10 10:33 | PDINTPN ---
[employer] Progress Note Assessment/Plan: Assessment/plan: * Acute subarachnoid hemorrhage -Doppler again today * Basilar artery aneurysm-status post coiling * Possible old lacunar stroke * Mental status-alert to person and month. Improved * Hypertension-high last pm and back on Cardene -maximize oral medications * Chronic renal insufficiency-creatinine is stabilized -continue to follow * Pulmonary hypertension * Fall-out of bed last night. No apparent head trauma. Patient is not complaining of any pain. -follow * VT prophylaxis * Stress ulcer prophylaxis * Pain -controlled * Mild anemia-continue to follow * Weakness-continue PT/OT * Nutrition-eating well Overall patient continues to improve Subjective: Sitting up in chair. Comfortable. He is working well with physical therapy. Objective: Vital Signs Temp Pulse Resp BP Pulse Ox 36.7 C 74 19 116/113 H 98 06/10/17 08:00 06/10/17 08:33 06/10/17 08:00 06/10/17 08:33 06/10/17 08:00 Laboratory Results 06/07/17 04:45 06/09/17 05:14 06/09/17 06/10/17 06/11/17 05:59 05:59 05:59 Intake Total 3848 3000 Output Total 5025 5925 125 Balance -1177 -2925 -125 PT 12.7 SEC (12.0-15.0) 06/02/17 15:22 INR 0.93 (0.83-1.16) 06/02/17 15:22 - Time Spent With Patient Time Spent With Patient: 25 min of time spent with patient, over 1/2 involved with coordination of care or counseling Physical Exam - Physical Exam General Appearance: alert, no apparent distress EENT: PERRL/EOMI, normal ENT inspection Neck: non-tender, full range of motion Respiratory: chest non-tender, lungs clear, normal breath sounds Cardiac/Chest: normal peripheral pulses, regular rate, rhythm Abdomen: normal bowel sounds, non-tender, soft Male Genitalia: deferred Rectal: deferred Skin: normal color, warm/dry Extremities: normal range of motion, non-tender, normal inspection, normal capillary refill Neuro/Psych: alert ICD10 Worksheet Patient Problems: Problems Problem Status Onset Hypertensive emergency Acute Subarachnoid hemorrhage Acute
--- NOTE | 2017-06-10 12:52 | HOSPPROG ---
Hospitalist Progress Note Assessment/Plan: Assessment/Plan: 46 yo M p/w hypertensive emergency resulting in acute subarachnoid hemorrhage in setting of basilar artery aneurysm, HINA on suspected CKD stage III, acute encephalopathy # Acute Subarachnoid Hemorrhage: 2/2 aneurysmal bleed 2/2 HTN emergency, requiring coiling, repeat head CT w/o extension - resulting in headache, tx per NSGY - keep SBP < 180, increased PO metop succ to 100mg daily today w/ IV PRN hydralazine and weaned off of cardene gtt o/n - per Dr. Mcfarland, cont q2hr neuro checks x 10 days post-coiling, given high risk of complication, remain in SDU # Acute encephalopathy: Evidenced by global brain dysfunction characterized as poor responsiveness, delayed verbal interactiveness, poor concentration, all of which are acute changes from his baseline and due to SAH - improving level of interactiveness today, seems to be at baseline now # Basilar artery aneurysm: s/p coiling, cont on nimodipine to tx vasospasm # Acute demand ischemia: 2/2 supply/demand mismatch in setting of HTN emergency , Echo w/o e/o infarct w/o focal wall motion abnl # HINA on suspected CKD Stage III: Acute injury 2/2 HTN emergency, downtrended s/ p controlling BP, BEN demonstrating degree of underlying medical renal disease, likely 2/2 uncontrolled HTN - Cr stabilized at 2.3, d/w case mgmt, will need [facility] f/u # Hypertensive emergency: Evidenced by SBP 251 + end-organ failure (SAH, HINA, demand ischemia), resolved # Chronic lower back pain: Provide PRN oxy IR, heat pad, tylenol scheduled # Leukocytosis: Resolved # Hypertensive retinopathy: Acute, resulting in his ongoing visual changes, no e /o hemorrhage on ophtho exam 06/06 - f/u recommended w/ ophtho on discharge - counseled patient regarding cause of visual changes # Diet: regular diet # DVT: SCDs, pharm contraindicated # Code: Full # Dispo: ADD uncertain, in next 48hrs if no neuro changes Subjective: reports no pain, ambulating safely 400ft Objective: Vital Signs Temp Pulse Resp BP Pulse Ox 36.7 C 71 18 157/93 H 98 06/10/17 08:00 06/10/17 12:00 06/10/17 12:00 06/10/17 12:00 06/10/17 12:00 Laboratory Results 06/07/17 04:45 06/09/17 05:14 06/09/17 06/10/17 06/11/17 05:59 05:59 05:59 Intake Total 3848 3000 Output Total 5025 5925 125 Balance -1177 -2925 -125 PT 12.7 SEC (12.0-15.0) 06/02/17 15:22 INR 0.93 (0.83-1.16) 06/02/17 15:22 - Pending Discharge Pending Discharge Within 48 Hours: Yes Pending Discharge Date: 06/12/17 Pending Discharge Time: 11:00 - Physical Exam Constitutional: no apparent distress, appears nourished, not in pain Cardiovascular: regular rate and rhythym, no murmur, rub, or gallop Respiratory: no respiratory distress, no rales or rhonchi, clear to auscultation Gastrointestinal: normoactive bowel sounds, soft, non-tender abdomen, no palpable masses Neurologic: AAOx3, sensation intact bilaterally, CN II-XII Intact, No weakness, No facial droop Psychiatric: interacting appropriately, not anxious, not encephalopathic, thought process linear, other (concentration 7/7) ICD10 Worksheet Patient Problems: Problems Problem Status Onset Subarachnoid hemorrhage Acute Hypertensive emergency Acute
[2017-06-10] MEDS: hydrALAZINE 20 MG/ML VIAL IVP PRN (15:55)
--- NOTE | 2017-06-10 18:05 | ASMTCMCOM ---
CM Note CM Note Notes: Recommendations: OT-Home w/24hr supervision, PT and ST In-pt rehab. Unfortunately pt does not have ins to pay for rehab. Patient's brother to take him home and care for him. Patient's and children live in [place]. [facility] will [facility] on discharge. Date Signed: 06/10/2017 06:04 PM Electronically Signed By:Nataliia Sewell LCSW
[2017-06-10] MEDS: MELATONIN 3 MG TAB PO SCH (20:48)
[2017-06-11] MEDS: HYDROCODONE/APAP 5/325 TAB PO PRN (00:50)
[2017-06-11] MEDS: niMODipine 30 MG CAP PO SCH ×6 (02:29→21:28)
[2017-06-11] MEDS: hydrALAZINE 20 MG/ML VIAL IVP PRN (04:47)
[2017-06-11] MEDS: oxyCODONE IR 5 MG TAB PO PRN (04:47)
[2017-06-11] MEDS: ACETAMINOPHEN 500 MG TAB PO SCH ×3 (08:33→21:44)
[2017-06-11] MEDS: METOPROLOL SUCCINATE XR 100 MG TAB PO SCH (08:33)
[2017-06-11] MEDS: TAMSULOSIN HCL 0.4 MG CAP PO SCH (08:33)
[2017-06-11] MEDS: FAMOTIDINE 20 MG TAB PO SCH (08:33)
--- NOTE | 2017-06-11 08:44 | NEUSURGPN ---
Date of Surgery: 06/03/17 Post Op Day: 8 Assessment/Plan: Assessment: 46 year old admitted with hypertension emergency, ruptured 6mm basilar tip aneurysm and SAH, now s/p coiling on 06/03/[address] Mcfarland Plan: -Continue SDU status until 10 days post op -TCD scheduled for MWF -Continue Nimodipine -SBP <180, patient taking orals, has not needed cardene x2days -q2h neuro check during day, q4h ok during night to allow to rest, continue for 10 days post op. . -ok to dc fluid goals -vision changes related to hypertensive retinopathy per ophthalmology, recommend OP f/u. Vision improved per patient. -PT/OT/STILL OPERATOR -Patient has lower back pain with left buttock/hamstring pain. Patient could have arachnoiditis r/t sah. Would like to give a dose of Toradol if ok with Medicine. Last legal receptionist 2.3 on 06/09 -Discussed with Dr. Mcfarland -Please call neurosurgery with any questions/concerns Subjective: Vision better, left buttock and left hamstring pain Objective: Objective: AAOx4 EOMI, PEARLA, visual field/ acuity appears grossly intact this am cn 2-12 grossly intact MAEx4, 5/5, no pronator drift Neuro Check Frequency: per routine Urinary Catheter in Place: No Catheter Insertion Date: 06/03/17 - Physician Discussed Patient with : Bartolo Patient Seen by : Bartolo Neurosurgery Physical Exam - Vitals, I&O, Labs I and O 06/10/17 06/11/17 06/12/17 05:59 05:59 05:59 Intake Total 3000 4777 Output Total 5925 3625 450 Balance -2925 1152 -450 Intake: Oral (ml) 2600 4700 IV Infused (ml) 400 77 niCARdipine/NACL 200 ml @ 400 77 Titrate IV CONT BRIDEGTT Rx#: [id number] Output: Urine (ml) 5925 3625 450 Toilet 3200 Urinal 2725 3625 450 Other: Intake Quantity Yes Sufficient Output Comment Toilet per patient comment Number of Voids Toilet 2 1 Urinal 1 5 1 Number of Stools Bedside Commode 0 Toilet 1 1 Vital Signs Temp Pulse Resp BP Pulse Ox 36.7 C 82 24 H 188/107 H 97 06/11/17 07:28 06/11/17 08:33 06/11/17 07:28 06/11/17 08:33 06/11/17 07:28 Laboratory Results 06/07/17 04:45 06/09/17 05:14 ICD10 Worksheet Patient Problems: Problems Problem Status Onset Hypertensive emergency Acute Subarachnoid hemorrhage Acute
[2017-06-11] MEDS ORDERED: KETOROLAC 15 MG/1 ML SDV IVP ONE (08:45)
--- NOTE | 2017-06-11 09:10 | PDINTPN ---
[employer] Progress Note Assessment/Plan: Assessment/plan: 46 M from [place] with HTN admitted 06/02/17 with headache and HTN emergency, found to have SAH and required coils. Also with HINA on CKD and now stable creatinine with adequate UOP. Ongoing monitoring in SDU per neurosurgery. * SAH s/p coils; clinically stable * HTN- currently on toprol XL 100/day; nicardipine, nimodipine, and prn hydralazine * CKD- stable creatinine at 2.3 * Chronic back pain- Toradol relatively contraindicated 2/2 CKD. Started ultram today Subjective: no complaints Objective: Vital Signs Temp Pulse Resp BP Pulse Ox 36.7 C 82 24 H 188/107 H 97 06/11/17 07:28 06/11/17 08:33 06/11/17 07:28 06/11/17 08:33 06/11/17 07:28 Laboratory Results 06/07/17 04:45 06/09/17 05:14 06/10/17 06/11/17 06/12/17 05:59 05:59 05:59 Intake Total 3000 4777 Output Total 5925 3625 450 Balance -2925 1152 -450 PT 12.7 SEC (12.0-15.0) 06/02/17 15:22 INR 0.93 (0.83-1.16) 06/02/17 15:22 Physical Exam - Physical Exam General Appearance: alert, no apparent distress EENT: PERRL/EOMI Neck: supple Respiratory: lungs clear, normal breath sounds, No respiratory distress, No accessory muscle use Cardiac/Chest: normal peripheral pulses, regular rate, rhythm, No edema Abdomen: non-tender, soft, No distended Skin: normal color, warm/dry, No cyanosis Lymphatic: no adenopathy Extremities: No pedal edema Neuro/Psych: alert, normal mood/affect, oriented x 3 ICD10 Worksheet Patient Problems: Problems Problem Status Onset Hypertensive emergency Acute Subarachnoid hemorrhage Acute
[2017-06-11] MEDS: hydrALAZINE 10 MG TAB PO SCH ×2 (09:44→17:31)
[2017-06-11] MEDS: traMADol 50 MG TAB PO PRN (09:45)
[2017-06-11] MEDS: LIDOCAINE 4%/MENTHOL 1% PATCH TD SCH (11:36)
--- NOTE | 2017-06-11 14:01 | ASMTCMCOM ---
CM Note CM Note Notes: Contacted [facility] re: appt for patient on discharge. [facility] [address] [facility] best [facility] to call back w/appt date/time. Contacted Padmini Ndiaye, patient's [id number], who will be his child care cook and asked if she could come in and talk with Therapist about how to best care for his needs. She will be coming in Sunday 10-10:30 for this meeting. Date Signed: 06/11/2017 02:00 PM Electronically Signed By:Nataliia Sewell LCSW
[2017-06-11] MEDS ORDERED: hydrALAZINE 25 MG TAB PO ONE (16:23)
--- NOTE | 2017-06-11 17:33 | HOSPPROG ---
Hospitalist Progress Note Assessment/Plan: Assessment/Plan: 46 yo M p/w hypertensive emergency resulting in acute subarachnoid hemorrhage in setting of basilar artery aneurysm, HINA on suspected CKD stage III, acute encephalopathy # Acute Subarachnoid Hemorrhage: 2/2 aneurysmal bleed 2/2 HTN emergency, requiring coiling, repeat head CT w/o extension - resulting in headache, tx per NSGY - keep SBP < 180, cont PO metop succ to 100mg daily w/ initiation of PO hydralazine and IV for breakthrough - per Dr. Mcfarland, cont q2hr neuro checks x 10 days post-coiling, given high risk of complication, remain in SDU (coiling 06/03/17) # Acute encephalopathy: Evidenced by global brain dysfunction characterized as poor responsiveness, delayed verbal interactiveness, poor concentration, all of which were acute changes from his baseline and due to SAH - improving level of interactiveness, seems to be at baseline now # Basilar artery aneurysm: s/p coiling, cont on nimodipine to tx vasospasm # Acute demand ischemia: 2/2 supply/demand mismatch in setting of HTN emergency , Echo w/o e/o infarct w/o focal wall motion abnl - recommend outpatient stress test through [facility] once condition stabilized # HINA on suspected CKD Stage III: Acute injury 2/2 HTN emergency, downtrended s/ p controlling BP, BEN demonstrating degree of underlying medical renal disease, likely 2/2 uncontrolled HTN - Cr stabilized at 2.3, d/w case mgmt, will need outpt [facility] f/u # Hypertensive emergency: Evidenced by SBP 251 + end-organ failure (SAH, HINA, demand ischemia), resolved - new BP Rx include metop succ 100 daily + hydralazine 25mg tid, uptitrated today # Chronic lower back pain: Provide PRN oxy IR, heat pad, tylenol scheduled # Leukocytosis: Resolved # Hypertensive retinopathy: Acute, resulting in his ongoing visual changes, no e /o hemorrhage on ophtho exam 06/06 - f/u recommended w/ ophtho on discharge - counseled patient regarding cause of visual changes # Diet: regular diet # DVT: SCDs, pharm contraindicated # Code: Full # Dispo: ADD 06/13/17 Subjective: patient feels well, no complaints Objective: Vital Signs Temp Pulse Resp BP Pulse Ox 37.1 C 69 21 H 171/138 H 98 06/11/17 16:00 06/11/17 16:00 06/11/17 16:00 06/11/17 16:57 06/11/17 16:00 Laboratory Results 06/07/17 04:45 06/09/17 05:14 06/10/17 06/11/17 06/12/17 05:59 05:59 05:59 Intake Total 3000 4777 700 Output Total 5991 3625 1275 Balance -2925 1152 -575 PT 12.7 SEC (12.0-15.0) 06/02/17 15:22 INR 0.93 (0.83-1.16) 06/02/17 15:22 - Physical Exam Constitutional: no apparent distress, appears nourished, not in pain Eyes: other (muddy sclera) Cardiovascular: regular rate and rhythym, no murmur, rub, or gallop, No edema Respiratory: no respiratory distress, no rales or rhonchi, clear to auscultation Gastrointestinal: normoactive bowel sounds, soft, non-tender abdomen, no palpable masses Neurologic: AAOx3, sensation intact bilaterally, CN II-XII Intact, No weakness, No facial droop Psychiatric: not anxious, not encephalopathic, flat affect, No agitated ICD10 Worksheet Patient Problems: Problems Problem Status Onset Hypertensive emergency Acute Subarachnoid hemorrhage Acute
[2017-06-11] MEDS: hydrALAZINE 25 MG TAB PO SCH (21:30)
[2017-06-11] MEDS: MELATONIN 3 MG TAB PO SCH (21:31)
[2017-06-11] MEDS: PATCH REMOVAL 1 EA PATCH TD SCH (21:31)
[2017-06-12] MEDS: traMADol 50 MG TAB PO PRN (00:09)
[2017-06-12] MEDS: niMODipine 30 MG CAP PO SCH ×6 (03:17→21:43)
[2017-06-12] MEDS: hydrALAZINE 20 MG/ML VIAL IVP PRN ×2 (03:38→13:29)
[2017-06-12] MEDS: oxyCODONE IR 5 MG TAB PO PRN ×2 (04:11→09:14)
--- NOTE | 2017-06-12 08:48 | HOSPPROG ---
Hospitalist Progress Note Assessment/Plan: # hypertensive emergency - better but required hydral IV last night - cont metop, hydral PO, nimodipine - will follow closely # SAH d/t ruptured basilar artery aneurysm/hypertensive emergency s/p coiling - goal SBP<180 - cont nimodipine - close neuro follow up for 10 days post-coil # hypertensive retinopathy - seen by ophthalmology; f/u as outpatient # acute encephalopathy - d/t above; seems at baseline currently # CKD - suspect at baseline - needs close outpatient f/u; avoid nephrotoxins # back pain - considering steroids (possible arachnoiditis); no NSAIDS - cont sched APAP, oxy, tramadol # demand ischemia - d/t htn Subjective: conplains of low back pain; no weakness; radiates to c-spine and down posterior legs Objective: Vital Signs Temp Pulse Resp BP Pulse Ox 36.3 C 91 19 171/88 H 91 L 06/12/17 07:51 06/12/17 07:51 06/12/17 07:51 06/12/17 07:51 06/12/17 07:51 Laboratory Results 06/07/17 04:45 06/12/17 04:15 06/11/17 06/12/17 06/13/17 05:59 05:59 05:59 Intake Total 4777 1900 450 Output Total 3625 1745 Balance 1152 155 450 PT 12.7 SEC (12.0-15.0) 06/02/17 15:22 INR 0.93 (0.83-1.16) 06/02/17 15:22 chart reviewed CTH and MRA reviewed US reviewed - Physical Exam Constitutional: uncomfortable Cardiovascular: regular rate and rhythym, no murmur, rub, or gallop Respiratory: no respiratory distress, no rales or rhonchi Gastrointestinal: normoactive bowel sounds, soft, non-tender abdomen ICD10 Worksheet Patient Problems: Problems Problem Status Onset Subarachnoid hemorrhage Acute Hypertensive emergency Acute
--- NOTE | 2017-06-12 08:57 | NEUSURGPN ---
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 Mcfarland Plan: -Continue SDU status until 10 days post op -TCD scheduled for MWF -Continue Nimodipine -SBP <180, patient taking orals -q2h neuro check during day, q4h ok during night to allow to rest, continue for 10 days post op. . -vision changes related to hypertensive retinopathy per ophthalmology, recommend OP f/u. Vision improved per patient. 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 Patient could have arachnoiditis r/t sah. Toradol d/c this morning due to kidney function. Discussed with medicine and will start Medrol dose pack -Discussed with Dr. Mcfarland -Please call neurosurgery with any questions/concerns Subjective: left leg pain. Denies any visual changes Objective: NAD A&Ox3 MAEx4 5/5 and equal in BUE and BLE. Catheter Insertion Date: 06/03/17 - Physician Discussed Patient with : [facility] Physical Exam - Vitals, I&O, Labs I and O 06/11/17 06/12/17 06/13/17 05:59 05:59 05:59 Intake Total 4777 1900 450 Output Total 3625 1745 Balance 1152 155 450 Intake: Oral (ml) 4700 1900 450 IV Infused (ml) 77 niCARdipine/NACL 200 ml @ 77 Titrate IV CONT BRIDGETT Rx#: [id number] Output: Urine (ml) 3625 1745 Toilet 975 Urinal 3625 770 Other: Intake Quantity Yes Yes Yes Sufficient Output Comment Toilet per patient comment Number of Voids Toilet 1 Urinal 5 1 Number of Stools Toilet 1 2 Vital Signs Temp Pulse Resp BP Pulse Ox 36.3 C 91 19 171/88 H 91 L 06/12/17 07:51 06/12/17 07:51 06/12/17 07:51 06/12/17 07:51 06/12/17 07:51 Laboratory Results 06/07/17 04:45 06/12/17 04:15 ICD10 Worksheet Patient Problems: Problems Problem Status Onset Hypertensive emergency Acute Subarachnoid hemorrhage Acute
[2017-06-12] MEDS: ONDANSETRON 4 MG/2 ML VIAL IVP PRN (09:15)
[2017-06-12] MEDS: METOPROLOL SUCCINATE XR 100 MG TAB PO SCH (09:19)
[2017-06-12] MEDS: hydrALAZINE 25 MG TAB PO SCH ×3 (09:21→21:43)
[2017-06-12] MEDS: TAMSULOSIN HCL 0.4 MG CAP PO SCH (09:21)
[2017-06-12] MEDS: LIDOCAINE 4%/MENTHOL 1% PATCH TD SCH (09:22)
[2017-06-12] MEDS: ACETAMINOPHEN 500 MG TAB PO SCH ×3 (09:30→21:43)
[2017-06-12] MEDS: methylPREDNISolone 4 MG TAB PO SCH ×5 (10:29→21:44)
--- NOTE | 2017-06-12 12:34 | ASMTCMCOM ---
CM Note CM Note Notes: PT, OT and ST have all met with sports physician and Jill, [id number] and strand and binder controller for Vincent to go over patient needs on discharge. Vincent has an appt at the [facility] on June 19 at 10:30 to see a provider and get enrolled in their system. RN has gone over the medications he should not take. Patient's records have been copied for him to take to [facility], incl CD of Imaging. A list of discharge meds and the Discharge Summary will need to be included. Patient has been recovering very successfully. Date Signed: 06/12/2017 12:34 PM Electronically Signed By:Nataliia Sewell LCSW
--- NOTE | 2017-06-12 14:11 | PDINTPN ---
Wedding Planner Progress Note Assessment/Plan: Assessment/plan: 46 M from [place] with HTN admitted 06/02/17 with headache and HTN emergency, found to have SAH and required coils. Also with HINA on CKD and now stable creatinine with adequate UOP. Ongoing monitoring in SDU per neurosurgery. * SAH s/p coils; clinically stable * HTN- currently on toprol XL 100/day; nicardipine, nimodipine, and prn hydralazine * CKD- stable creatinine at 2.3 * Chronic back pain- NSIADs contraindicated 2/2 CKD. Ultram not yet given for unclear reasons. * Dispo: home soon? 06/12/17 14:10 Subjective: no events Objective: Vital Signs Temp Pulse Resp BP Pulse Ox 36.9 C 70 16 164/104 H 95 06/12/17 12:00 06/12/17 13:36 06/12/17 13:36 06/12/17 13:36 06/12/17 13:36 Laboratory Results 06/07/17 04:45 06/12/17 04:15 06/11/17 06/12/17 06/13/17 05:59 05:59 05:59 Intake Total 4777 1900 450 Output Total 3625 1745 250 Balance 1152 155 200 PT 12.7 SEC (12.0-15.0) 06/02/17 15:22 INR 0.93 (0.83-1.16) 06/02/17 15:22 Physical Exam - Physical Exam General Appearance: alert, no apparent distress EENT: PERRL/EOMI Neck: supple Respiratory: lungs clear, normal breath sounds, No respiratory distress Cardiac/Chest: regular rate, rhythm, No edema Abdomen: non-tender, soft, No distended Skin: normal color, warm/dry, No cyanosis Lymphatic: no adenopathy Extremities: No pedal edema Neuro/Psych: alert, normal mood/affect, oriented x 3 ICD10 Worksheet Patient Problems: Problems Problem Status Onset Hypertensive emergency Acute Subarachnoid hemorrhage Acute
[2017-06-12] MEDS: MELATONIN 3 MG TAB PO SCH (21:42)
[2017-06-12] MEDS: PATCH REMOVAL 1 EA PATCH TD SCH (21:45)
[2017-06-13] MEDS: niMODipine 30 MG CAP PO SCH ×6 (02:35→21:05)
[2017-06-13] MEDS: traMADol 50 MG TAB PO PRN (05:18)
--- NOTE | 2017-06-13 08:00 | SOAPPROG ---
SOAP Progress Note Assessment/Plan: Assessment: 46 year old admitted with hypertensive emergency, ruptured 6mm basilar tip aneurysm and SAH, now s/p coiling on 06/03/[address] Mcfarland. 10 days post procedure today. Plan: -OK to transfer to floor from Neurosurgery standpoint -Needs TCD's today. If those look ok, he can DC home, but will likely need to stay in house due to increasing creatinine. -Today is last day needed in SDU since he is 10 days post procedure -ok to let BP drift to 160s -q2h neuro check during day, q4h ok during night to allow to rest, continue for 10 days post op. -vision changes related to hypertensive retinopathy per ophthalmology, recommend OP f/u. Vision improved per patient. -PT/OT/DEBURRER -Patient's lower back pain with left buttock/hamstring pain improved since starting steroids. -Discussed with Dr. Mcfarland -Please call neurosurgery with any questions/concerns Subjective: Out of bed walking in room. Denies back,buttock or leg pain today. Denies any visual changes. Feeling good Objective: NAD A&Ox3 MAEx4 5/5 and equal in BUE and BLE Objective: Vital Signs Temp Pulse Resp BP Pulse Ox 36.9 C 70 12 164/87 H 95 06/12/17 20:00 06/13/17 04:00 06/13/17 04:00 06/13/17 04:00 06/13/17 04:00 Laboratory Results 06/07/17 04:45 06/13/17 05:15 06/12/17 06/13/17 06/14/17 05:59 05:59 05:59 Intake Total 1900 1950 Output Total 1745 1450 Balance 155 500 PT 12.7 SEC (12.0-15.0) 06/02/17 15:22 INR 0.93 (0.83-1.16) 06/02/17 15:22 ICD10 Worksheet Patient Problems: Problems Problem Status Onset Hypertensive emergency Acute Subarachnoid hemorrhage Acute
[2017-06-13] MEDS: ACETAMINOPHEN 500 MG TAB PO SCH ×3 (10:00→21:06)
[2017-06-13] MEDS: hydrALAZINE 25 MG TAB PO SCH ×3 (10:00→21:02)
[2017-06-13] MEDS: TAMSULOSIN HCL 0.4 MG CAP PO SCH (10:01)
[2017-06-13] MEDS: LIDOCAINE 4%/MENTHOL 1% PATCH TD SCH (10:01)
[2017-06-13] MEDS: METOPROLOL SUCCINATE XR 100 MG TAB PO SCH (10:01)
--- NOTE | 2017-06-13 10:55 | HOSPPROG ---
Hospitalist Progress Note Assessment/Plan: # hypertensive emergency - overall better today (increased hydral yesterday) - cont metop, hydral PO, nimodipine - will follow closely # SAH d/t ruptured basilar artery aneurysm/hypertensive emergency s/p coiling - goal SBP<180 - cont nimodipine - close neuro follow up for 10 days post-coil # CKD - slightly worse today; may be pre-renal vs relative hypotension - will trial 1L NS today and recheck tomorrow # hypertensive retinopathy - seen by ophthalmology; f/u as outpatient # acute encephalopathy - d/t above; seems at baseline currently # back pain - much better after starting steroids - cont sched APAP, oxy, tramadol # demand ischemia - d/t htn Subjective: backpain much better today Objective: Vital Signs Temp Pulse Resp BP Pulse Ox 36.4 C 68 16 180/109 H 98 06/13/17 08:00 06/13/17 08:00 06/13/17 08:00 06/13/17 08:00 06/13/17 08:00 Laboratory Results 06/07/17 04:45 06/13/17 05:15 06/12/17 06/13/17 06/14/17 05:59 05:59 05:59 Intake Total 1900 1950 Output Total 1745 1450 Balance 155 500 PT 12.7 SEC (12.0-15.0) 06/02/17 15:22 INR 0.93 (0.83-1.16) 06/02/17 15:22 - Physical Exam Constitutional: no apparent distress, appears nourished Cardiovascular: regular rate and rhythym, no murmur, rub, or gallop Respiratory: no rales or rhonchi, clear to auscultation Gastrointestinal: normoactive bowel sounds, no palpable masses ICD10 Worksheet Patient Problems: Problems Problem Status Onset Subarachnoid hemorrhage Acute Hypertensive emergency Acute
[2017-06-13] MEDS ORDERED: NS 1,000 ML IV SCH (11:00)
[2017-06-13] MEDS: methylPREDNISolone 4 MG TAB PO SCH ×2 (15:48→18:22)
[2017-06-13] MEDS ORDERED: methylPREDNISolone 4 MG TAB PO SCH (21:00)
[2017-06-13] MEDS: MELATONIN 3 MG TAB PO SCH (21:06)
[2017-06-13] MEDS: PATCH REMOVAL 1 EA PATCH TD SCH (21:07)
[2017-06-14] MEDS ORDERED: niMODipine 30 MG CAP PO SCH
[2017-06-14] MEDS: niMODipine 30 MG CAP PO SCH ×3 (01:11→09:18)
[2017-06-14] MEDS ORDERED: methylPREDNISolone 4 MG TAB PO SCH (07:30)
[2017-06-14 08:07] VITALS: BP 168/111
[2017-06-14] MEDS: ACETAMINOPHEN 500 MG TAB PO SCH (09:18)
[2017-06-14] MEDS: LIDOCAINE 4%/MENTHOL 1% PATCH TD SCH (09:18)
[2017-06-14] MEDS: METOPROLOL SUCCINATE XR 100 MG TAB PO SCH (09:19)
[2017-06-14] MEDS: hydrALAZINE 25 MG TAB PO SCH (09:19)
[2017-06-14] MEDS: TAMSULOSIN HCL 0.4 MG CAP PO SCH (09:19)
--- NOTE | 2017-06-14 09:44 | NEUSURGPN ---
Date of Surgery: 06/03/17 Post Op Day: 11 Assessment/Plan: Assessment: 46 year old admitted with hypertensive emergency, ruptured 6mm basilar tip aneurysm and SAH, now s/p coiling on 06/03/[address] Mcfarland. POD#11 Plan: -OK to discharge home, ok'd with medicine -ok to let BP drift to 160s -vision changes related to hypertensive retinopathy per ophthalmology, recommend OP f/u. Vision improved per patient. -PT/OT/WIRE PULLER -Patient's lower back pain with left buttock/hamstring pain improved since starting steroids. -Discussed with Dr. Mcfarland -Please call neurosurgery with any questions/concerns Subjective: Patient ambulating in room, left leg pain improved Objective: AxO x3 PERRL EOMI CN 2-12 grossly intact SOLIS x4 Neuro Check Frequency: per routine Urinary Catheter in Place: No Catheter Insertion Date: 06/03/17 - Physician Discussed Patient with Dr.: Mcfarland Neurosurgery Physical Exam - Vitals, I&O, Labs I and O 06/13/17 06/14/17 06/15/17 05:59 05:59 05:59 Intake Total 1950 3200 Output Total 1450 1500 Balance 500 1700 Intake: Oral (ml) 1950 2200 IV Intake (ml) 1000 Output: Urine (ml) 1450 1500 Toilet 550 1500 Urinal 900 Other: Intake Quantity Yes Yes Sufficient Number of Voids Toilet 1 4 Number of Emesis 1 Occurrences Vital Signs Temp Pulse Resp BP Pulse Ox 36.9 C 72 16 168/111 H 97 06/14/17 08:00 06/14/17 08:00 06/14/17 08:00 06/14/17 08:00 06/14/17 08:00 Laboratory Results 06/07/17 04:45 06/14/17 05:00 ICD10 Worksheet Patient Problems: Problems Problem Status Onset Hypertensive emergency Acute Subarachnoid hemorrhage Acute
--- NOTE | 2017-06-14 10:56 | HOSPPROG ---
Hospitalist Progress Note Assessment/Plan: # hypertensive emergency - overall better today (increased hydral yesterday) - cont metop, hydral PO, nimodipine; will need further up-titration as outpatient - we have made him a follow [facility] # SAH d/t ruptured basilar artery aneurysm/hypertensive emergency s/p coiling - goal SBP<180 - cont nimodipine - follow up with nsg # CKD - improved; stable for outpatient follow up at this point # hypertensive retinopathy - seen by ophthalmology; f/u as outpatient # acute encephalopathy - d/t above; seems at baseline currently # back pain - much better after starting steroids - cont sched APAP, oxy, tramadol # demand ischemia - d/t htn Subjective: 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 with wool hat forming 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 tender; discussed the imprtance of regular medical follow up and taking medications as prescribed Objective: Vital Signs Temp Pulse Resp BP Pulse Ox 36.9 C 72 16 168/111 H 97 06/14/17 08:00 06/14/17 08:00 06/14/17 08:00 06/14/17 08:00 06/14/17 08:00 Laboratory Results 06/07/17 04:45 06/14/17 05:00 06/13/17 06/14/17 06/15/17 05:59 05:59 05:59 Intake Total 1950 3200 Output Total 1450 1500 Balance 500 1700 PT 12.7 SEC (12.0-15.0) 06/02/17 15:22 INR 0.93 (0.83-1.16) 06/02/17 15:22 - Time Spent With Patient Time Spent with Patient: greater than 25 minutes Time Spent with Patient: Greater than 25 minutes spent on this patients care, greater than 50% of time spent counseling, educating, and coordinating care regarding the above mentioned plan. - Physical Exam Constitutional: no apparent distress, appears nourished ICD10 Worksheet Patient Problems: Problems Problem Status Onset Subarachnoid hemorrhage Acute Hypertensive emergency Acute
[2017-06-15] MEDS ORDERED: methylPREDNISolone 4 MG TAB PO SCH (07:30)
[2017-06-16] MEDS ORDERED: methylPREDNISolone 4 MG TAB PO SCH (07:30)
[2017-06-17] MEDS ORDERED: methylPREDNISolone 4 MG TAB PO SCH (07:30)
== END 2017-06-14 13:40 | disposition home or self-care (01) | DRG 20 ==
LOC: F2N 16:38
PROVIDERS: ADMIT Neurological Surgery; ATTEND Neurological Surgery
PROC: B31R1ZZ Fluoroscopy of Intracranial Arteries using Low Osmolar Contrast (ICD-10-PCS; 2017-06-02)
PROC: 03LG3DZ Occlusion of Intracranial Artery with Intraluminal Device, Percutaneous Approach (ICD-10-PCS; principal; 2017-06-03)
PROC: B31D1ZZ Fluoroscopy of Right Vertebral Artery using Low Osmolar Contrast (ICD-10-PCS; principal; 2017-06-03)
PROC: B3181ZZ Fluoroscopy of Bilateral Internal Carotid Arteries using Low Osmolar Contrast (ICD-10-PCS; principal; 2017-06-03)
PROC: 02HV33Z Insertion of Infusion Device into Superior Vena Cava, Percutaneous Approach (ICD-10-PCS; 2017-06-03)
DX: I60.7 Nontraumatic subarachnoid hemorrhage from unspecified intracranial artery (principal); I16.1 Hypertensive emergency; I12.9 Hypertensive chronic kidney disease with stage 1 through stage 4 chronic kidney disease, or unspecified chronic kidney disease; G93.40 Encephalopathy, unspecified; N17.9 Acute kidney failure, unspecified; N18.3 Chronic kidney disease, stage 3 (moderate); H47.11 Papilledema associated with increased intracranial pressure; I24.8 Other forms of acute ischemic heart disease; H53.8 Other visual disturbances; H35.033 Hypertensive retinopathy, bilateral; E66.9 Obesity, unspecified; R01.1 Cardiac murmur, unspecified; R94.31 Abnormal electrocardiogram [ECG] [EKG]; I27.20 Pulmonary hypertension, unspecified; M54.5 Low back pain; D64.9 Anemia, unspecified; Z68.27 Body mass index [BMI] 27.0-27.9, adult
CPT/HCPCS: 82947-QW; 92507-GN; 92523-GN; 92610-GN; 96365; 96366; 97112-GP; 97116-GP; 97162-GP; 97166-GO; 97530-GO; 97530-GP; 97535-GO; C1725; C1751; C1760; C1769; C1887; C1894; G0515-GO; J0360; J0690; J1170; J1630; J1644; J2060; J2270; J2405; J2550; J2704; J3010; Q9967